=== PATIENT | male | born 1935 | race Caucasian/White ===

== ENCOUNTER → 2017-01-17 | Outpatient (CLI) | payer MEDICARE ==
--- NOTE | 2017-01-17 13:38 | REP ---
Duplex extremity venous ultrasound: Left lower extremity. History: Left leg pain and swelling. Question DVT. Findings: The deep veins are anechoic and fully compressible from the groin to the popliteal fossa in the left lower extremity. Color flow imaging is homogeneous. Spectral Doppler interrogation demonstrates intact respiratory variation in flow and normal manual augmentation of flow. There is no evidence of deep vein thrombosis. Impression: Negative left lower extremity duplex venous ultrasound. No evidence of deep vein thrombosis. Signed by Ian Kent MD 01/17/2017 01:30 P
== END ==
LOC: M RAD 12:43
PROVIDERS: ATTEND Nurse Practitioner Adult Health
DX: M79.605 Pain in left leg (principal)

== ENCOUNTER → 2017-02-22 | Outpatient (REF) | payer MEDICARE ==
[2017-02-22 18:46] LABS: FERRITIN 163 NG/ML (26-388); PERCENT SATURATION 22.5 % (19.7-37.4); TOTAL IRON BINDING CAPACITY 289 UG/DL (250-450); TOTAL PROTEIN 6.7 GM/DL (6.4-8.2)
[2017-02-26 10:33] LABS: ALBUMIN 3.52 GM/DL (3.29-5.55); ALBUMIN % 52.6 % (55.8-66.1); GAMMA GLOBULIN % 14.3 % (11.1-18.8)
== END ==
LOC: M LAB REF 17:01
PROVIDERS: ATTEND Nurse Practitioner Adult Health
DX: D50.9 Iron deficiency anemia, unspecified (principal); G60.3 Idiopathic progressive neuropathy

== ENCOUNTER → 2017-04-03 | Outpatient (REF) | payer MEDICARE | LOC: M LAB REF 12:29 | PROVIDERS: ATTEND Nurse Practitioner Adult Health | DX: M86.172 Other acute osteomyelitis, left ankle and foot (principal) ==

== ENCOUNTER → 2017-05-14 | Outpatient (CLI) | payer MEDICARE ==
[2017-05-14 12:25] LABS: BLOOD UREA NITROGEN 10 MG/DL (7-18); CREATININE FOR GFR 0.85 MG/DL (0.70-1.30); GLOMERULAR FILTRATION RATE > 60.0 (>35)
--- NOTE | 2017-05-14 13:55 | REP ---
MR BRAIN WITHOUT AND WITH CONTRAST: HISTORY: Third Nerve Palsy. CONTRAST: ProHance 17 mL. An area of increased signal intensity on T2-weighted images is present in the right basal ganglia and centrum semiovale. This represents an old lacunar infarction. Areas of increased signal intensity on T2-weighted images are present in the periventricular and subcortical white matter and nimco. This represents small vessel ischemic disease. There is no intraparenchymal hemorrhage, acute infarct, mass, or midline shift. There is no abnormal enhancement. The ventricular system and cortical sulci are dilated consistent with mild volume loss. There is no extracerebral collection. The sinuses are clear. IMPRESSION: 1. 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 2. Small vessel ischemic disease. 3. Mild volume loss. Signed by Madan Busch MD 05/14/2017 02:05 P
--- NOTE | 2017-05-14 14:16 | REP ---
MRA BRAIN WITHOUT CONTRAST: HISTORY: Left Third Nerve Palsy. 3D [id number] MR angiography was performed at the level of the [place]. There is on aneurysm or arteriovenous malformation. Mild atherosclerotic disease involves the cavernous and supraclinoid internal carotid arteries. Major intracranial vessels are patent. There is ectasia of the right vertebral artery. The right vertebral artery is dominant. IMPRESSION: 1. There is no aneurysm or arteriovenous malformation. 2. Atherosclerotic disease as described above. Signed by Madan Busch MD 05/14/2017 02:25 P
== END ==
LOC: M LAB 11:18
PROVIDERS: ATTEND Ophthalmology
DX: H49.02 Third [oculomotor] nerve palsy, left eye (principal)
CPT/HCPCS: 36415; 70544; 70553; 82565; 84520; A9576

== ENCOUNTER → 2018-07-22 | Outpatient (REF) | payer MEDICARE | LOC: M LAB REF 14:39 | DX: R19.7 Diarrhea, unspecified (principal) | CPT/HCPCS: 87507 ==

== ENCOUNTER → 2019-02-20 | Outpatient (REF) | payer MEDICARE ==
[2019-02-20 18:52] LABS: AMYLASE 21 U/L (25-115); LIPASE 59 U/L (73-393)
== END ==
LOC: M LAB REF 16:50
PROVIDERS: ATTEND Nurse Practitioner Family
DX: R10.9 Unspecified abdominal pain (principal)

== ENCOUNTER 2019-03-07 09:01 | Inpatient (IN) | payer MEDICARE ==
[~2019-03-07] VITALS: Ht 175.3 cm; Wt 92.6 kg
[2019-03-07] MEDS ORDERED: ZYLO300T6 PO (09:19)
[2019-03-07] MEDS ORDERED: SILO8CAP PO (09:19)
[2019-03-07] MEDS ORDERED: ATOR1TAB19 PO (09:19)
[2019-03-07] MEDS ORDERED: LOSA50TA5 PO (09:19)
[2019-03-07] MEDS ORDERED: FINA5TAB2 PO (09:19)
[2019-03-07 09:58] LABS: BASO % 0.3 % (0.0-1.0); EOS % 0.1 % (0.0-3.0); HEMATOCRIT 40.1 % (42.0-52.0); HEMOGLOBIN 13.3 g/dl (13.5-17.5); LYMPH # 0.8 10^3/uL (1.5-4.5); LYMPH % 5.1 % (24.0-44.0); MEAN CORPUSCULAR HEMOGLOBIN 32.8 pg (27.0-33.0); MEAN CORPUSCULAR HGB CONC 33.2 g/dl (32.0-36.5); MEAN CORPUSCULAR VOLUME 98.8 fl (80.0-96.0); MONO # 0.6 10^3/uL (0.0-0.8); MONO % 3.8 % (0.0-5.0); NEUTROPHILS # 13.9 10^3/uL (1.8-7.7); PLATELET COUNT, AUTOMATED 255 10^3/uL (150-450); RED BLOOD COUNT 4.06 10^6/uL (4.30-6.10); WHITE BLOOD COUNT 15.4 10^3/uL (4.0-10.0)
[2019-03-07 10:24] LABS: ALBUMIN 2.9 GM/DL (3.2-5.2); ALT/SGPT 25 U/L (12-78); BILIRUBIN,DIRECT 0.3 MG/DL (0.0-0.2); BILIRUBIN,TOTAL 1.1 MG/DL (0.2-1.0); BLOOD UREA NITROGEN 21 MG/DL (7-18); CALCIUM LEVEL 9.3 MG/DL (8.8-10.2); CARBON DIOXIDE LEVEL 28 MEQ/L (21-32); CHLORIDE LEVEL 104 MEQ/L (98-107); CREATININE FOR GFR 1.01 MG/DL (0.70-1.30); GLOMERULAR FILTRATION RATE > 60.0 (>35); GLUCOSE, FASTING 143 MG/DL (70-100); LIPASE 61 U/L (73-393); POTASSIUM SERUM 3.8 MEQ/L (3.5-5.1); SODIUM LEVEL 141 MEQ/L (136-145); TOTAL PROTEIN 7.1 GM/DL (6.4-8.2)
[2019-03-07] MEDS: GASTROGRAFIN SOLUTION 30ML PO SCH ×2 (10:37→11:02)
[2019-03-07] MEDS: ONDANSETRON 4MG/2ML VIAL (J2405) IV ONE ×2 (10:38→11:48)
[2019-03-07] MEDS ORDERED: ISOVUE-370 76% 100ML VIAL (Q9967) As Ordered ONE (11:52)
--- NOTE | 2019-03-07 13:34 | REP ---
CT ABDOMEN AND PELVIS WITH ORAL AND IV CONTRAST: TECHNIQUE: Axial contrast enhanced images from the lung bases to the pubic symphysis using 100 mL Isovue 370 intravenous contrast material with multiplanar reformations. Visualized lung bases demonstrate patchy infiltrates or atelectasis inferiorly bilaterally. Multiple calcified granulomas are seen in the liver. No parenchymal mass is seen. The patient has had prior cholecystectomy. There is expected prominence of the common bile duct and central intrahepatic ducts. Multiple calcified granulomas are seen in the spleen, which is normal in size. The adrenals are normal. There is a suspicious mass in the tail of the pancreas, which appears partially cystic and solid. It measures approximately 3.9 x 3.0 cm. A few small cysts are seen in each kidney. There is no hydronephrosis bilaterally. Moderate atherosclerotic calcification is seen of the abdominal aorta with minimal aneurysmal dilatation 3.1 cm in maximum AP dimension. Multiple subcentimeter lymph nodes are seen in the periaortic region. Ill-defined soft tissue is seen in the omentum compatible with neoplastic metastatic disease. Ill-defined infiltration is seen of the more inferior omentum and mesentery to a mild extent. There is a focal area of moderate mesenteric stranding and likely neoplastic infiltration in the upper pelvis just to the right of midline. A small bowel loops appears to be involved and appears to be partially obstructed with moderate proximal small bowel dilatation. No definite colonic thickening is seen. There is sigmoid diverticulosis. There is mild scattered free fluid throughout the abdomen and pelvis. There is no free air. Urinary bladder is not well-distended and not well evaluated. There is a small right inguinal hernia containing mild fluid. No bony lesions are seen. IMPRESSION: Patchy bibasilar infiltrates/atelectasis in the visualized lung bases. Suspicious mass in the tail of the pancreas 3.9 x 3.0 cm. Abnormal soft tissue, which is ill-defined, diffusely in the superior omentum compatible with neoplastic infiltration and metastatic disease. There is also scattered infiltration of the mesentery, which is more focal in the upper pelvis to the right of midline. This affects a small bowel loop at that location and appears to cause small bowel obstruction. The more proximal small bowel demonstrates moderate diffuse dilatation. There is mild diffuse abdominal and pelvic ascites. Electronically Signed by Feroz Patel MD 03/11/2019 05:32 P
[2019-03-07] MEDS ORDERED: NS 500 ML IV ONE (14:45)
[2019-03-07] MEDS ORDERED: NS 1,000 ML IV SCH (14:45)
[2019-03-07] MEDS ORDERED: PRIL20TA2 PO (15:41)
[2019-03-07] MEDS ORDERED: AGGR1CAP PO (15:41)
[2019-03-07] MEDS ORDERED: CITRTAB15 PO (15:44)
[2019-03-07] MEDS ORDERED: FISH1000 PO (15:44)
[2019-03-07] MEDS ORDERED: MULTCAP PO (15:44)
[2019-03-07] MEDS ORDERED: VITA-172 PO (15:44)
[2019-03-07] MEDS: D5W/0.45% SODIUM CHLORIDE 1,000 ML IV SCH (15:57)
[2019-03-07 17:22] VITALS: BP 111/55
--- NOTE | 2019-03-07 17:28 | HPEPDOC ---
General Date of Admission Mar 07, 2019 at 15:04 Chief Complaint The patient is a 83-year-old male admitted with a reason for visit of Bowel Obs truction, Pancreatic Mass. Home Medications Scheduled Allopurinol (Zyloprim) 300 Mg Tablet, 300 MG PO DAILY, (Reported) Aspirin/Dipyridamole (Aggrenox 25 mg-200 mg Capsule) 1 Each Cpmp.12hr, 1 CAP PO BID, (Reported) Atorvastatin Calcium (Atorvastatin Calcium) 10 Mg Tablet, 10 MG PO QPM, (Reported) Brennen Cit/Mag/D3/Zn/Account Resolution Expert/Carlos/Bor (Citracal-Vit D + Magnesium Tab) 1 Each Tablet, 1 TAB PO DAILY, (Reported) Cyanocobalamin (Vitamin B-12) (Vitamin B-12) 500 Mcg Tablet, 500 MCG PO DAILY, (Reported) Finasteride (Finasteride) 5 Mg Tablet, 5 MG PO QPM, (Reported) Losartan/Hydrochlorothiazide (Losartan-Hctz 50-12.5 mg Tab) 1 Each Tablet, 1 TAB PO DAILY, (Reported) Multivitamin (Multivitamins) 1 Each Capsule, 1 CAP PO DAILY, (Reported) [place]-3 Fatty Acids/Fish Oil (Fish Oil 1,000 mg Capsule) 1 Each Capsule, 1,000 MG PO DAILY, (Reported) Omeprazole Magnesium (Prilosec Otc) 20 Mg Tablet.dr, 20 MG PO DAILY, (Reported) Silodosin (Silodosin) 8 Mg Capsule, 8 MG PO QPM, (Reported) Allergies Coded Allergies: No Known Allergies (Verified , 02/16/03) Vital Signs Vital Signs Date Time Temp Pulse Resp B/P (MAP) Pulse Ox O2 Delivery O2 Flow Rate FiO2 03/07/19 17:22 97.8 92 18 111/55 (73) 91 03/07/19 14:15 Room Air Laboratory Data Labs 24H Laboratory Tests 2 03/07/19 09:47: Immature Granulocyte % (Auto) 0.7, White Blood Count 15.4H, Red Blood Count 4.06L, Hemoglobin 13.3L, Hematocrit 40.1L, Mean Corpuscular Volume 98.8H, Mean Corpuscular Hemoglobin 32.8, Mean Corpuscular Hemoglobin Concent 33.2, Red Cell Distribution Width 13.0, Platelet Count 255, Neutrophils (%) (Auto) 90.0H, Lymphocytes (%) (Auto) 5.1L, Monocytes (%) (Auto) 3.8, Eosinophils (%) (Auto) 0.1, Basophils (%) (Auto) 0.3, Neutrophils # (Auto) 13.9H, Lymphocytes # (Auto) 0.8L, Monocytes # (Auto) 0.6, Eosinophils # (Auto) 0.0, Basophils # (Auto) 0.0, Nucleated Red Blood Cells % (auto) 0.0, Anion Gap 9, Glomerular Filtration Rate > 60.0, Calcium Level 9.3, Aspartate Amino Transf (AST/SGOT) 25, Alanine Am inotransferase (ALT/SGPT) 25, Alkaline Phosphatase 157H, Total Bilirubin 1.1H, Direct Bilirubin 0.3H, Total Protein 7.1, Albumin 2.9L, Albumin/Globulin Ratio 0.69L, Lipase 61L 03/07/19 11:49: Urine Color BRIAN, Urine Appearance CLOUDYH, Urine pH 6.0, Urine Specific [place] 1.021, Urine Protein NEGATIVE, Urine Glucose (UA) NEGATIVE, Urine Ketones NEGATIVE, Urine Blood NEGATIVE, Urine Nitrite NEGATIVE, Urine Bilirubin NEGATIVE, Urine Urobilinogen 2.0H, Urine Leukocyte Esterase NEGATIVE, Urine WBC (Auto) 1, Urine RBC (Auto) 2, Urine Hyaline Casts (Auto) 1, Urine Bacteria (Aut o) NEGATIVE, Urine Squamous Epithelial Cells 0, Urine Amorphous Sediment SMALLH, Urine Mucus (Auto) SMALL, Urine Sperm (Auto) 03/07/19 14:20: POC Lactate (Misc Panel) 2.48*H CBC/BMP Laboratory Tests 03/07/19 09:47 Red Blood Count 4.06 L, Mean Corpuscular Volume 98.8 H, Mean Corpuscular Hemoglobin 32.8, Mean Corpuscular Hemoglobin Concent 33.2, Red Cell Distribution Width 13.0, Neutrophils (%) (Auto) 90.0 H, Lymphocytes (%) (Auto) 5.1 L, Monocytes (%) (Auto) 3.8, Eosinophils (%) (Auto) 0.1, Basophils (%) (Auto) 0.3, Neutrophils # (Auto) 13.9 H, Lymphocytes # (Auto) 0.8 L, Monocytes # (Auto) 0.6, Eosinophils # (Auto) 0.0, Basophils # (Auto) 0.0 TOMASA PETER MD Mar 07, 2019 17:28
[2019-03-07] MEDS: ENOXAPARIN 40 MG/0.4 ML SYRINGE (J1650) SC SCH (17:30)
--- NOTE | 2019-03-07 18:04 | MEDONC ---
NEW PATIENT CONSULTATION: DATE OF SERVICE: 03/07/2019 REASON FOR CONSULTATION: Pancreatic mass. This is a very pleasant 83-year-old gentleman who had presented to the emergency room this morning due to a chief complaint of abdominal distension, persistent nausea, vomiting and abdominal pain. This had been going on for at least 24-48 hours. When the patient arrived to the emergency room he was markedly distended and an NG tube was placed for drainage. The patient's abdomen was not acute on palpation. However, he had gone for imaging studies of the abdomen to rule out acute abdominal obstruction. The CT scan of the abdomen had shown multiple calcified granulomas in the liver, prior cholecystectomy, prominence of the common bile duct and multiple calcified granulomas in the spleen which were normal in size. There was a suspicious mass in the tail of the pancreas which appeared to be partially cystic and solid measuring 3 x 9 x 3 cm. There was no evidence of any hydronephrosis. There is an abdominal aortic aneurysm measuring 3.1 cm in maximum dimension. There were also multiple subcentimeter lymph nodes seen in the periaortic region and an ill-defined soft tissue in the omentum compatible with neoplastic metastatic disease. There was ill-defined infiltration seen in the more inferior omentum and mesentery to mild extent. There was a focal area of moderate mesenteric stranding and likely neoplastic infiltration in the upper pelvis just right to the midline and the small bowel loops appear to be involved and appear to be partially obstructed with moderate proximal small bowel dilatation. There was no evidence of any colonic thickening or free air. There is mild diffuse abdominal and pelvic ascites. The patient currently is comfortable in the ICU. He is surrounded by his family and states that he feels better now that he has the NG tube in. PAST MEDICAL HISTORY: The patient's past medical history includes benign prostatic hypertrophy (BPH), hypertension, hyperlipidemia. The patient's left lower leg is in a permanent cast secondary to nonhealing of his lower leg, possible osteomyelitis. The patient has a history of hypertension, gout. Colonoscopy in 2012 where the patient had shown some nonbleeding internal hemorrhoids, diverticulosis, one medium polyp in the mid transverse colon, which was biopsied and was consistent with a tubular adenoma. MEDICATIONS: Include: - allopurinol 300 mg p.o. daily - aspirin - dipyridamole 1 capsule p.o. b.i.d. - atorvastatin calcium 10 mg p.o. q.p.m. - cyanocobalamin - vitamin B12 500 mg p.o. daily - finasteride 5 mg p.o. q.p.m. - losartan - hydrochlorothiazide 50/12.5 mg one p.o. daily - MVI 1 capsule p.o. daily - omega fish oils 1000 mg p.o. daily - omeprazole 20 mg p.o. daily - Silodosin 8 mg p.o. q.p.m. SOCIAL HISTORY The patient is retired from the [employer]. He lives with his . His children are supportive. FAMILY HISTORY: Otherwise noncontributory. REVIEW OF SYSTEMS As noted in HPI. PHYSICAL EXAMINATION: VITAL SIGNS: The patient has a temperature of 98.3, pulse of 95, respiratory rate is 20, BP is 111/57, pulse oximetry is 93, height is 175, weight is 181.9, BSA is 2.01, BMI is 26.7. HEENT: Normocephalic, atraumatic. PERRL. EOMI. Sclerae is white, it is nonicteric. Oropharynx clear. NG tube is present in the nares. Neck: Supple. Chest: Decreased breath sounds at the bases. Cardiovascular: S1 and S2 appreciated with no murmurs. Abdomen: Large, globoid, but distended, very tympanic throughout the abdominal area. Bowel sounds are absent. There is no sign of any ascites. Extremities: His left lower extremity is currently casted in his polyurethane boot and there is no edema on the right. LABORATORIES: Shows a WBC count of 15.4, hemoglobin of 13.3, hematocrit of 40.1, RDW of 13, platelets of 255, neutrophils of 90, lymphocytes are 5.1. Chemistries show a lipase of 61, albumin of 2.9, alkaline phosphatase of 157, AST 25, ALT of 25, BUN 21, creatinine 1.01, sodium of 141, potassium 3.8. ASSESSMENT: Pancreatic tail mass with current mesentery thickening suggestive of small bowel obstruction secondary to malignancy. PLAN: Plan is to get a biopsy of the mass. The patient has had a history of a prior tubulous bilious adenoma. The pancreatic mass could be a metastatic site or a primary site. I advised the family that it is unlikely that we will have a diagnosis this weekend and that we will see the availability of interventional radiology. His NG tube will need to remain for several days likely and then further discussions about treatment etc will be made after tissue diagnosis is confirmed. Electronically Signed by Essence Loredo MD 03/10/2019 12:32 P DD: Essence Loredo MD 03/07/2019 04:54 P DT: kathy 03/07/2019 05:50 P CC:
[2019-03-07 20:00] VITALS: BP 90/40
--- NOTE | 2019-03-07 20:58 | HPEPDOC ---
[facility] Medical History & Physical Date of Admission Mar 07, 2019 Date of Service: Mar 07, 2019 Attending Physician: TOMASA PETER MD History and Physical CHIEF COMPLAINT: Abdominal pain HISTORY OF PRESENT ILLNESS: Mr. Selby is an 83 year old male resented with complaints of diffuse, nonradiating, eating, 9 out of 10 in severity, abdominal pain. Associated symptoms included constipation (his last BM was on Sunday), along with nausea, vomiting and abdominal distention. He denied obstipation. He has lost weight but denies fevers and chills. PAST MEDICAL/ SURGICAL HISTORY: 1. Chronic hypertension. 2. Right lower extremity surgery. 3 BPH. 4 Dyslipidemia SOCIAL HISTORY: Quit smoking in the 60s. Takes alcohol occasionally. FAMILY HISTORY: Denies family history of heart problems or lung problems. ALLERGIES: Please see below. REVIEW OF SYSTEMS: 12 point review of systems negative except as listed in HPI HOME MEDICATIONS: Please see below. PHYSICAL EXAMINATION: Temperature 97.8, heart rate 92, respiratory rate 18, blood pressure 111/55, pulse oximetry 93% on room air GENERAL APPEARANCE:. Well-nourished, well-developed, has flat affect. HEENT:. Normocephalic, atraumatic. Mucous members moist and pink. NG tube in place to low wall suction. Stomach contents or bilious CARDIOVASCULAR: Rate and rhythm. No murmurs, rubs or gallops. LUNGS:. Sensation on room air. ABDOMEN: Abdominal sounds are hypoactive. The abdomen is slightly distended, firm but not tender on palpation. MUSCULOSKELETAL: Range of motion intact 4 extremities. EXTREMITIES:, 2+ bilateral lower extremity edema. NEUROLOGICAL: CN II to 12 grossly intact. Speech not dysarthric PSYCHIATRIC:. Alert and oriented to person, place and time, able to understand and follow all commands. Patient has a flat affect. LABORATORY DATA: See below. IMAGING: CT of the abdomen showed a mass in the tail of the pancreas that was 3.9 x 3 cm. There was metastatic disease noted to affect the mesentery and the small bowels causing obstruction. MICROBIOLOGY: Please see below. ASSESSMENT: Mr. Selby is an 83-year-old gentleman with a past medical history of BPH, hypertension and dyslipidemia will be admitted for management of small bow el obstruction secondary to metastatic pancreatic cancer. . PLAN: 1., Small bowel obstruction secondary to Metastatic pancreatic cancer. Plan: Admit to medical floor, continue nothing by mouth and NG to suction, continue with IV fluids and Zofran, consult oncology and palliative care, morphine when necessary for pain control. 2. Chronic hypertension. Plan: Monitor blood pressure, and hold meds well. Nothing by mouth, hydralazine PRN 3. BPH. Plan hold meds DVT prophylaxis with Lovenox. Disposition pending clinical course Vital Signs Vital Signs Date Time Temp Pulse Resp B/P (MAP) Pulse Ox O2 Delivery O2 Flow Rate FiO2 03/07/19 17:22 97.8 92 18 111/55 (73) 91 03/07/19 14:15 Room Air Laboratory Data Labs 24H Laboratory Tests 2 03/07/19 09:47: Immature Granulocyte % (Auto) 0.7, White Blood Count 15.4H, Red Blood Count 4.06L, Hemoglobin 13.3L, Hematocrit 40.1L, Mean Corpuscular Volume 98.8H, Mean Corpuscular Hemoglobin 32.8, Mean Corpuscular Hemoglobin Concent 33.2, Red Cell Distribution Width 13.0, Platelet Count 255, Neutrophils (%) (Auto) 90.0H, Lymphocytes (%) (Auto) 5.1L, Monocytes (%) (Auto) 3.8, Eosinophils (%) (Auto) 0.1, Basophils (%) (Auto) 0.3, Neutrophils # (Auto) 13.9H, Lymphocytes # (Auto) 0.8L, Monocytes # (Auto) 0.6, Eosinophils # (Auto) 0.0, Basophils # (Auto) 0.0, Nucleated Red Blood Cells % (auto) 0.0, Anion Gap 9, Glomerular Filtration Rate > 60.0, Calcium Level 9.3, Aspartate Amino Transf (AST/SGOT) 25, Alanine Aminotransferase (ALT/SGPT) 25, Alkaline Phosphatase 157H, Total Bilirubin 1.1H, Direct Bilirubin 0.3H, Total Protein 7.1, Albumin 2.9L, Albumin/Globulin Ratio 0.69L, Lipase 61L 03/07/19 11:49: Urine Color BRIAN, Urine Appearance CLOUDYH, Urine pH 6.0, Urine Specific [place] 1.021, Urine Protein NEGATIVE, Urine Glucose (UA) NEGATIVE, Urine Ketones NEGATIVE, Urine Blood NEGATIVE, Urine Nitrite NEGATIVE, Urine Bilirubin NEGATIVE, Urine Urobilinogen 2.0H, Urine Leukocyte Esterase NEGATIVE, Urine WBC (Auto) 1, Urine RBC (Auto) 2, Urine Hyaline Casts (Auto) 1, Urine Bacteria (Auto) NEGATIVE, Urine Squamous Epithelial Cells 0, Urine Amorphous Sediment SMALLH, Urine Mucus (Auto) SMALL, Urine Sperm (Auto) 03/07/19 14:20: POC Lactate (Misc Panel) 2.48*H 03/07/19 18:33: Lactic Acid Level 1.7 CBC/BMP Laboratory Tests 03/07/19 09:47 Red Blood Count 4.06 L, Mean Corpuscular Volume 98.8 H, Mean Corpuscular Hemoglobin 32.8, Mean Corpuscular Hemoglobin Concent 33.2, Red Cell Distribution Width 13.0, Neutrophils (%) (Auto) 90.0 H, Lymphocytes (%) (Auto) 5.1 L, Monocytes (%) (Auto) 3.8, Eosinophils (%) (Auto) 0.1, Basophils (%) (Auto) 0.3, Neutrophils # (Auto) 13.9 H, Lymphocytes # (Auto) 0.8 L, Monocytes # (Auto) 0.6, Eosinophils # (Auto) 0.0, Basophils # (Auto) 0.0 Home Medications Scheduled Allopurinol (Zyloprim) 300 Mg Tablet, 300 MG PO DAILY Aspirin/Dipyridamole (Aggrenox 25 mg-200 mg Capsule) 1 Each Cpmp.12hr, 1 CAP PO BID Atorvastatin Calcium (Atorvastatin Calcium) 10 Mg Tablet, 10 MG PO QPM Brennen Cit/Mag/D3/Zn/Vacuum Frame Operator/Carlos/Bor (Citracal-Vit D + Magnesium Tab) 1 Each Tablet, 1 TAB PO DAILY Cyanocobalamin (Vitamin B-12) (Vitamin B-12) 500 Mcg Tablet, 500 MCG PO DAILY Finasteride (Finasteride) 5 Mg Tablet, 5 MG PO QPM Losartan/Hydrochlorothiazide (Losartan-Hctz 50-12.5 mg Tab) 1 Each Tablet, 1 TAB PO DAILY Multivitamin (Multivitamins) 1 Each Capsule, 1 CAP PO DAILY [place]-3 Fatty Acids/Fish Oil (Fish Oil 1,000 mg Capsule) 1 Each Capsule, 1,000 MG PO DAILY Omeprazole Magnesium (Prilosec Otc) 20 Mg Tablet.dr, 20 MG PO DAILY Silodosin (Silodosin) 8 Mg Capsule, 8 MG PO QPM Allergies Coded Allergies: No Known Allergies (Verified , 02/16/03) A-FIB/CHADSVASC A-FIB History Current/History of A-Fib/PAF?: No Current PO Anticoag Therapy: No TOMASA PETER MD Mar 07, 2019 20:58
[2019-03-07] MEDS: hydrALAZINE INJ 20 MG/ML VIAL IV SCH (21:00)
[2019-03-08] VITALS (7 sets, daily range): BP systolic 101–132; BP diastolic 55–67
[2019-03-08] MEDS: hydrALAZINE INJ 20 MG/ML VIAL IV SCH ×3 (05:05→19:56)
[2019-03-08 06:01] LABS: ALBUMIN 2.6 GM/DL (3.2-5.2); ALT/SGPT 18 U/L (12-78); BILIRUBIN,TOTAL 0.9 MG/DL (0.2-1.0); BLOOD UREA NITROGEN 30 MG/DL (7-18); CARBON DIOXIDE LEVEL 33 MEQ/L (21-32); CHLORIDE LEVEL 102 MEQ/L (98-107); CREATININE FOR GFR 1.01 MG/DL (0.70-1.30); GLOMERULAR FILTRATION RATE > 60.0 (>35); GLUCOSE, FASTING 127 MG/DL (70-100); POTASSIUM SERUM 3.4 MEQ/L (3.5-5.1); SODIUM LEVEL 142 MEQ/L (136-145); TOTAL PROTEIN 6.8 GM/DL (6.4-8.2)
[2019-03-08 08:37] LABS: BASO % 0.1 % (0.0-1.0); EOS % 0.2 % (0.0-3.0); HEMATOCRIT 32.4 % (42.0-52.0); LYMPH # 1.4 10^3/uL (1.5-4.5); MEAN CORPUSCULAR HEMOGLOBIN 32.8 pg (27.0-33.0); MEAN CORPUSCULAR VOLUME 96.7 fl (80.0-96.0); MONO % 5.7 % (0.0-5.0); NEUTROPHILS # 14.6 10^3/uL (1.8-7.7); NEUTROPHILS % 85.3 % (36.0-66.0); PLATELET COUNT, AUTOMATED 247 10^3/uL (150-450); RED BLOOD COUNT 3.35 10^6/uL (4.30-6.10); WHITE BLOOD COUNT 17.2 10^3/uL (4.0-10.0)
[2019-03-08 09:12] LABS: BLOOD UREA NITROGEN 30 MG/DL (7-18); CALCIUM LEVEL 8.6 MG/DL (8.8-10.2); CARBON DIOXIDE LEVEL 33 MEQ/L (21-32); CHLORIDE LEVEL 103 MEQ/L (98-107); CREATININE FOR GFR 0.93 MG/DL (0.70-1.30); GLOMERULAR FILTRATION RATE > 60.0 (>35); GLUCOSE, FASTING 125 MG/DL (70-100); POTASSIUM SERUM 3.3 MEQ/L (3.5-5.1); SODIUM LEVEL 142 MEQ/L (136-145)
[2019-03-08] MEDS: D5W/0.45% SODIUM CHLORIDE 1,000 ML IV SCH (10:30)
[2019-03-08] MEDS: ENOXAPARIN 40 MG/0.4 ML SYRINGE (J1650) SC SCH (10:30)
[2019-03-08] MEDS: KCL 10MEQ/100ML SWI (KRUN) 10 MEQ in APPROPRIATE DILUENT 1 EA IV SCH ×2 (14:43→17:00)
--- NOTE | 2019-03-08 16:04 | IPNPDOC ---
Subjective Date Seen The patient was seen on 03/08/19. Time of service 9:50 AM Subjective Chief Complaint/HPI Abdominal pain Events since last encounter The patient denies having any abdominal pain, or any other acute complaints this morning. Per discussion with his RN the patient continues to have large amount of bilious output through the NG Objective Physical Examination Other physical findings PHYSICAL EXAMINATION: GENERAL APPEARANCE:. Well-nourished, well-developed, has flat affect. HEENT:. Normocephalic, atraumatic. Mucous members moist and pink. NG tube in p lace to low wall suction. Stomach contents or bilious CARDIOVASCULAR: Rate and rhythm. No murmurs, rubs or gallops. LUNGS:. Sensation on room air. ABDOMEN: Abdominal sounds are hypoactive the abdomen is less distended than yesterday and not tender on palpation MUSCULOSKELETAL: Range of motion intact 4 extremities. EXTREMITIES:, 2+ bilateral lower extremity edema. NEUROLOGICAL: CN II to 12 grossly intact. Speech not dysarthric PSYCHIATRIC:. Alert and oriented to person, place and time, able to understand and follow all commands. Patient has a flat affect. Assessment /Plan Assessment Mr. Selby is an 83-year-old gentleman with a past medical history of BPH, hype rtension and dyslipidemia will be admitted for management of small bowel obstruction secondary to metastatic pancreatic cancer. PLAN: 1, Small bowel obstruction secondary to Metastatic cancer. Per Dr. Loredo's consult it's unclear whether the pancreas as the primary or sediment. Past desists Plan appreciate oncology and surgery's recommendations, continue the NG to suction, IV fluids, Zofran and morphine 2. Chronic hypertension. Plan: Monitor blood pressure, and hold meds well. Nothing by mouth, hydralazine PRN 3. BPH. Plan: hold meds 4. Hypokalemia. Likely secondary to GI loss Plan repeat potassium. 5. Obesity. BMI 30.3 DVT prophylaxis with Lovenox. Disposition pending clinical course Plan/VTE VTE Prophylaxis Ordered?: Yes (lovenox) VS, I&O, 24H, Fishbone Vital Signs/I&O Vital Signs Date Time Temp Pulse Resp B/P (MAP) Pulse Ox O2 Delivery O2 Flow Rate FiO2 03/08/19 13:00 117/59 03/08/19 12:00 97.0 74 18 96 03/07/19 14:15 Room Air I&O- Last 24 Hours up to 6 AM 03/08/19 06:00 Intake Total 500 ml Output Total 675 ml Balance -175 ml Laboratory Data 24H LABS Laboratory Tests 2 03/07/19 18:33: Lactic Acid Level 1.7 03/08/19 04:59: Anion Gap 7L, Glomerular Filtration Rate > 60.0, Blood Urea Nitrogen 30H, Creatinine 1.01, Sodium Level 142, Potassium Level 3.4L, Chloride Level 102, Carbon Dioxide Level 33H, Calcium Level 9.0, Aspartate Amino Transf (AST/SGOT) 16, Alanine Aminotransferase (ALT/SGPT) 18, Alkaline Phosphatase 124H, Total Bilirubin 0.9, Total Protein 6.8, Albumin 2.6L, Albumin/Globulin Ratio 0.62L 03/08/19 07:47: Lactic Acid Level 1.8 03/08/19 08:27: Anion Gap 6L, Glomerular Filtration Rate > 60.0, Blood Urea Nitrogen 30H, Creatinine 0.93, Sodium Level 142, Potassium Level 3.3L, Chloride Level 103, Carbon Dioxide Level 33H, Calcium Level 8.6L, Immature Granulocyte % (Auto) 0.7, White Blood Count 17.2H, Red Blood Count 3.35L, Hemoglobin 11.0#L, Hematocrit 32.4L, Mean Corpuscular Volume 96.7H, Mean Corpuscular Hemoglobin 32.8, Mean Corpuscular Hemoglobin Concent 34.0, Red Cell Distribution Width 12.9, Platelet Count 247, Neutrophils (%) (Auto) 85.3H, Lymphocytes (%) (Auto) 8.0L, Monocytes (%) (Auto) 5.7H, Eosinophils (%) (Auto) 0.2, Basophils (%) (Auto) 0.1, Neutrophils # (Auto) 14.6H, Lymphocytes # (Auto) 1.4L, Monocytes # (Auto) 1.0H, Eosinophils # (Auto) 0.0, Basophils # (Auto) 0.0, Nucleated Red Blood Cells % (auto) 0.0 CBC/BMP Laboratory Tests 03/08/19 04:59 Calcium Level 9.0, Aspartate Amino Transf (AST/SGOT) 16, Alanine Aminotransferase (ALT/SGPT) 18, Alkaline Phosphatase 124 H, Total Bilirubin 0.9, Total Protein 6.8, Albumin 2.6 L 03/08/19 08:27 Calcium Level 8.6 L, Red Blood Count 3.35 L, Mean Corpuscular Volume 96.7 H, Mean Corpuscular Hemoglobin 32.8, Mean Corpuscular Hemoglobin Concent 34.0, Red Cell Distribution Width 12.9, Neutrophils (%) (Auto) 85.3 H, Lymphocytes (%) (Auto) 8.0 L, Monocytes (%) (Auto) 5.7 H, Eosinophils (%) (Auto) 0.2, Basophils (%) (Auto) 0.1, Neutrophils # (Auto) 14.6 H, Lymphocytes # (Auto) 1.4 L, Monocytes # (Auto) 1.0 H, Eosinophils # (Auto) 0.0, Basophils # (Auto) 0.0 TOMASA PETER MD Mar 08, 2019 16:04
[2019-03-08] MEDS: FINASTERIDE 5 MG TAB PO SCH (20:06)
[2019-03-09] VITALS: BP 138/64
[2019-03-09 04:00] VITALS: BP 131/64
[2019-03-09] MEDS: hydrALAZINE INJ 20 MG/ML VIAL IV SCH ×3 (04:38→21:00)
[2019-03-09 08:00] VITALS: BP 140/73
[2019-03-09] MEDS: D5W/0.45% SODIUM CHLORIDE 1,000 ML IV SCH (09:28)
[2019-03-09] MEDS: ENOXAPARIN 40 MG/0.4 ML SYRINGE (J1650) SC SCH (09:31)
--- NOTE | 2019-03-09 09:57 | IPNPDOC ---
Subjective Date Seen The patient was seen on 03/09/19. Time of service 8:20 AM Subjective Chief Complaint/HPI Abdominal pain. Events since last encounter The patient reports feeling much better today, he denies having abdominal pain or any acute complaints. His [id number] is at the bedside. Per discussion with nursing staff. The patient is passing gas and had a bowel movement, the output through the NG has decreased this morning but during the mini shifter he had an output of about 900 milliliters. Objective Physical Examination Other physical findings PHYSICAL EXAMINATION: VITALS: See below GENERAL APPEARANCE: Well-nourished, well-developed, appears to be in a better mood today HEENT: Normocephalic, atraumatic. Mucous members moist and pink. NG tube in p lace to low wall suction. Stomach contents or bilious CARDIOVASCULAR: Rate and rhythm. No murmurs, rubs or gallops. LUNGS: Sensation on room air. ABDOMEN: Bowel sounds are present, but more prominent on the left than on the right, the abdomen is no longer distended and is soft and nontender on palpation MUSCULOSKELETAL: Range of motion intact 4 extremities. He has an ankle brace on the lower extremity EXTREMITIES:, 2+ bilateral lower extremity edema. NEUROLOGICAL: CN II to 12 grossly intact. Speech not dysarthric PSYCHIATRIC: Alert and oriented to person, place and time, able to understand and follow all commands. Assessment /Plan Assessment Mr. Selby is an 83-year-old gentleman with a past medical history of BPH, hypertension and dyslipidemia will be admitted for management of small bowel obstruction secondary to metastatic cancer (primary source to be determined). PLAN: 1, Small bowel obstruction secondary to Metastatic cancer. Primary source to be determined Plan: appreciate oncology and surgery's recommendations, continue NG to suction , IV fluids, Zofran and morphine, IR consult for biopsy, possibly tomorrow 2. Macrocytic anemia. Hemoglobin has dropped more than 2 points overnight. Plan: Follow up CBC, reticulocyte count, iron studies, B12, folate and stool occult 3 Chronic hypertension. Plan: Monitor blood pressure, and hold meds well. Nothing by mouth, IV hydralazine PRN 4 BPH. Plan: hold oral meds 5. Hypokalemia. 2/2 GI loss and poor PO intake Plan: Replete K & Continue to monitor potassium and magnesium 6. Obesity. BMI 30.3 DVT prophylaxis with Lovenox. Disposition pending clinical course Plan/VTE VTE Prophylaxis Ordered?: Yes (lovenox) VS, I&O, 24H, Fishbone Vital Signs/I&O Vital Signs Date Time Temp Pulse Resp B/P (MAP) Pulse Ox O2 Delivery O2 Flow Rate FiO2 03/09/19 08:00 98.3 76 17 140/73 (95) 94 03/07/19 14:15 Room Air I&O- Last 24 Hours up to 6 AM 03/09/19 06:00 Intake Total 550 ml Output Total 1300 ml Balance -750 ml Laboratory Data 24H LABS Laboratory Tests 2 03/08/19 17:10: TOMASA PETER MD Mar 09, 2019 09:57
--- NOTE | 2019-03-09 09:59 | IPNPDOC ---
Text Note Date of Service The patient was seen on 03/09/19. NOTE No acute events overnight. He denies any nausea, emesis, fevers, abd pains, or distention. He is passing flatus, and had a BM overnight. Nurses report no NGT output over the mine shifter. VSSAF NAD abd - soft, slightly distended, NT labs - see below A) 83y/o male with partial SBO secondary to likely metastatic pancreatic CA that appears to be resolving P) clamp NGT clq diet ambulate dc NG after dinner is still tolerating it clamped. Lowell Crum DO VS,Fishbone, I+O VS, Fishbone, I+O Vital Signs Date Time Temp Pulse Resp B/P (MAP) Pulse Ox O2 Delivery O2 Flow Rate FiO2 03/09/19 08:00 98.3 76 17 140/73 (95) 94 03/07/19 14:15 Room Air I&O- Last 24 Hours up to 6 AM 03/09/19 06:00 Intake Total 550 ml Output Total 1300 ml Balance -750 ml ART CRUM DO Mar 09, 2019 09:59
[2019-03-09 10:23] LABS: BASO % 0.1 % (0.0-1.0); EOS # 0.1 10^3/uL (0.0-0.50); EOS % 0.6 % (0.0-3.0); HEMATOCRIT 35.1 % (42.0-52.0); HEMOGLOBIN 11.7 g/dl (13.5-17.5); LYMPH # 0.9 10^3/uL (1.5-4.5); LYMPH % 6.6 % (24.0-44.0); MEAN CORPUSCULAR HEMOGLOBIN 32.6 pg (27.0-33.0); MEAN CORPUSCULAR HGB CONC 33.3 g/dl (32.0-36.5); MEAN CORPUSCULAR VOLUME 97.8 fl (80.0-96.0); MONO # 0.7 10^3/uL (0.0-0.8); MONO % 5.3 % (0.0-5.0); NEUTROPHILS # 11.9 10^3/uL (1.8-7.7); NEUTROPHILS % 86.7 % (36.0-66.0); PLATELET COUNT, AUTOMATED 263 10^3/uL (150-450); RED BLOOD COUNT 3.59 10^6/uL (4.30-6.10); WHITE BLOOD COUNT 13.7 10^3/uL (4.0-10.0)
[2019-03-09 10:41] LABS: BLOOD UREA NITROGEN 24 MG/DL (7-18); CALCIUM LEVEL 8.4 MG/DL (8.8-10.2); CARBON DIOXIDE LEVEL 31 MEQ/L (21-32); CHLORIDE LEVEL 103 MEQ/L (98-107); CREATININE FOR GFR 0.88 MG/DL (0.70-1.30); GLOMERULAR FILTRATION RATE > 60.0 (>35); GLUCOSE, FASTING 120 MG/DL (70-100); MAGNESIUM LEVEL 2.3 MG/DL (1.8-2.4); POTASSIUM SERUM 3.3 MEQ/L (3.5-5.1); SODIUM LEVEL 140 MEQ/L (136-145)
[2019-03-09 12:00] VITALS: BP 136/64
[2019-03-09] MEDS ORDERED: POTASSIUM PHOSPHATE INJ 15 MMOL in D5W 250 ML IV ONE (13:00)
[2019-03-09 20:00] VITALS: BP 129/67
[2019-03-09] MEDS: FINASTERIDE 5 MG TAB PO SCH (21:43)
[2019-03-10] VITALS (7 sets, daily range): BP systolic 115–137; BP diastolic 56–70
[2019-03-10] MEDS: hydrALAZINE INJ 20 MG/ML VIAL IV SCH ×3 (05:00→21:00)
[2019-03-10 05:58] LABS: BASO % 0.1 % (0.0-1.0); EOS # 0.1 10^3/uL (0.0-0.50); EOS % 0.7 % (0.0-3.0); HEMATOCRIT 34.5 % (42.0-52.0); HEMOGLOBIN 11.4 g/dl (13.5-17.5); LYMPH # 1.1 10^3/uL (1.5-4.5); MEAN CORPUSCULAR HEMOGLOBIN 32.2 pg (27.0-33.0); MEAN CORPUSCULAR VOLUME 97.5 fl (80.0-96.0); MONO # 0.8 10^3/uL (0.0-0.8); MONO % 5.8 % (0.0-5.0); NEUTROPHILS # 11.4 10^3/uL (1.8-7.7); NEUTROPHILS % 84.7 % (36.0-66.0); PLATELET COUNT, AUTOMATED 254 10^3/uL (150-450); RED BLOOD COUNT 3.54 10^6/uL (4.30-6.10); WHITE BLOOD COUNT 13.5 10^3/uL (4.0-10.0)
[2019-03-10 07:14] LABS: BLOOD UREA NITROGEN 18 MG/DL (7-18); CALCIUM LEVEL 8.5 MG/DL (8.8-10.2); CARBON DIOXIDE LEVEL 33 MEQ/L (21-32); CHLORIDE LEVEL 100 MEQ/L (98-107); CREATININE FOR GFR 0.82 MG/DL (0.70-1.30); FERRITIN 157 NG/ML (26-388); GLOMERULAR FILTRATION RATE > 60.0 (>35); GLUCOSE, FASTING 120 MG/DL (70-100); IRON (FE) 27 UG/DL (65-175); MAGNESIUM LEVEL 2.3 MG/DL (1.8-2.4); POTASSIUM SERUM 2.9 MEQ/L (3.5-5.1); SODIUM LEVEL 140 MEQ/L (136-145); TOTAL IRON BINDING CAPACITY 270 UG/DL (250-450)
[2019-03-10] MEDS: D5W/0.45% SODIUM CHLORIDE 1,000 ML IV SCH (07:40)
[2019-03-10] MEDS ORDERED: KCL 20MEQ IN 100ML SWI (KRUN) 20 MEQ in APPROPRIATE DILUENT 1 EA IV SCH ×2 (07:45)
[2019-03-10] MEDS: ENOXAPARIN 40 MG/0.4 ML SYRINGE (J1650) SC SCH (08:10)
[2019-03-10] MEDS ORDERED: SLF 3 ML SYR IV PRN (10:30)
[2019-03-10] MEDS: KCL 10MEQ/100ML SWI (KRUN) 100 ML IV SCH ×4 (10:57→15:34)
--- NOTE | 2019-03-10 11:07 | IPNPDOC ---
Text Note Date of Service The patient was seen on 03/10/19. NOTE No acute events overnight. He denies any nausea, emesis, fevers, abd pains, or distention. He is passing flatus. He did not tolerate the NGT clamped yesterday, and had to be placed back to suction. VSSAF NAD abd - soft, slightly distended, NT labs - see below A) 83y/o male with partial SBO secondary to likely metastatic pancreatic CA P) NGT to [facility] IR for possible bx today ambulate if no improvement by the am, then I will plan for OR tomorrow. Lowell Crum DO VS,Fishbone, I+O VS, Fishbone, I+O Laboratory Tests 03/10/19 05:33 Red Blood Count 3.54 L, Mean Corpuscular Volume 97.5 H, Mean Corpuscular Hemoglobin 32.2, Mean Corpuscular Hemoglobin Concent 33.0, Red Cell Distribution Width 12.7, Neutrophils (%) (Auto) 84.7 H, Lymphocytes (%) (Auto) 8.0 L, Monocytes (%) (Auto) 5.8 H, Eosinophils (%) (Auto) 0.7, Basophils (%) (Auto) 0.1, Neutrophils # (Auto) 11.4 H, Lymphocytes # (Auto) 1.1 L, Monocytes # (Auto) 0.8, Eosinophils # (Auto) 0.1, Basophils # (Auto) 0.0, Calcium Level 8.5 L Vital Signs Date Time Temp Pulse Resp B/P (MAP) Pulse Ox O2 Delivery O2 Flow Rate FiO2 03/10/19 08:00 97.8 77 17 128/62 (84) 91 03/07/19 14:15 Room Air I&O- Last 24 Hours up to 6 AM 03/10/19 06:00 Intake Total 632.5 ml Output Total 2930 ml Balance -2297.5 ml ART CRUM DO Mar 10, 2019 11:07
[2019-03-10] MEDS ORDERED: KCL 20MEQ IN 100ML SWI (KRUN) 20 MEQ in APPROPRIATE DILUENT 1 EA IV ONE ×2 (12:00)
[2019-03-10] MEDS: SLF 3 ML SYR IV SCH ×2 (14:00→21:32)
[2019-03-10] MEDS ORDERED: POTASSIUM PHOSPHATE INJ 30 MMOL in D5W 500 ML IV ONE (14:00)
[2019-03-10] MEDS ORDERED: KCL 10MEQ IN STERILE WATER 100ML As Ordered ONE (15:31)
--- NOTE | 2019-03-10 18:02 | IPNPDOC ---
Subjective Date Seen The patient was seen on 03/10/19. Time of service 10:20 AM Subjective Chief Complaint/HPI Abdominal pain Events since last encounter The patient reports that his abdominal pain has resolved, and has no other acute complaints Objective Physical Examination Other physical findings PHYSICAL EXAMINATION: VITALS: See below GENERAL APPEARANCE: Well-nourished, well-developed, HEENT: Normocephalic, atraumatic. Mucous members moist and pink. NG tube in kaylynn ce to gravity. Stomach contents or bilious CARDIOVASCULAR: Rate and rhythm. No murmurs, rubs or gallops. LUNGS: Sensation on room air. ABDOMEN: Bowel sounds are present, but more prominent on the left the abdomen is soft and nontender on palpation MUSCULOSKELETAL: Range of motion intact 4 extremities. He has an ankle brace on the lower extremity EXTREMITIES:, 2+ bilateral lower extremity edema. NEUROLOGICAL: CN II to 12 grossly intact. Speech not dysarthric PSYCHIATRIC: Alert and oriented to person, place and time, able to understand and follow all commands Assessment /Plan Assessment Mr. Selby is an 83-year-old gentleman with a past medical history of BPH, hyp ertension and dyslipidemia will be admitted for management of small bowel obstruction secondary to metastatic cancer (primary source to be determined). PLAN: 1, Small bowel obstruction secondary to Metastatic cancer. Primary source of cancer be determined Plan: appreciate oncology and surgery's recommendations, continue NG to suction , IV fluids, Zofran and morphine, surgery planned for tomorrow, IR has been consulted for for a biopsy, 2. Iron deficiency anemia. Hemoglobin has dropped more than 2 points overnight. Plan: Follow up CBC and stool occult, will keep hemoglobin above 7 3 Hypokalemia. 2/2 GI loss and poor PO intake Plan: Replete K & Continue to monitor potassium and magnesium 4.Chronic hypertension. Plan: Monitor blood pressure, and hold meds well. Nothing by mouth, IV hydral azine PRN 5.BPH. Plan: hold oral meds. 6. Obesity. BMI 30.3 DVT. Lovenox on hold Disposition pending clinical course Plan/VTE VTE Prophylaxis Ordered?: Yes (lovenox) VS, I&O, 24H, Fishbone Vital Signs/I&O Vital Signs Date Time Temp Pulse Resp B/P (MAP) Pulse Ox O2 Delivery O2 Flow Rate FiO2 03/10/19 16:00 98.2 86 18 124/58 (80) 92 03/07/19 14:15 Room Air I&O- Last 24 Hours up to 6 AM 03/10/19 06:00 Intake Total 632.5 ml Output Total 2930 ml Balance -2297.5 ml Laboratory Data 24H LABS Laboratory Tests 2 03/10/19 05:33: Immature Granulocyte % (Auto) 0.7, White Blood Count 13.5H, Red Blood Count 3.54L, Hemoglobin 11.4L, Hematocrit 34.5L, Mean Corpuscular Volume 97.5H, Mean Corpuscular Hemoglobin 32.2, Mean Corpuscular Hemoglobin Concent 33.0, Red Cell Distribution Width 12.7, Platelet Count 254, Neutrophils (%) (Auto) 84.7H, Lymphocytes (%) (Auto) 8.0L, Monocytes (%) (Auto) 5.8H, Eosinophils (%) (Auto) 0.7, Basophils (%) (Auto) 0.1, Neutrophils # (Auto) 11.4H, Lymphocytes # (Auto) 1.1L, Monocytes # (Auto) 0.8, Eosinophils # (Auto) 0.1, Basophils # (Auto) 0.0, Reticulocyte # (auto) 52.7, Nucleated Red Blood Cells % (auto) 0.0, Percent Reticulocyte Count 1.5, Reticulocyte Hemoglobin Equivalent 37.6H, Anion Gap 7L, Glomerular Filtration Rate > 60.0, Blood Urea Nitrogen 18, Creatinine 0.82, Sodium Level 140, Potassium Level 2.9*L, Chloride Level 100, Carbon Dioxide Level 33H, Calcium Level 8.5L, Magnesium Level 2.3, Iron Level 27L, Total Iron Binding Capacity 270, Transferrin % Saturation 10.0L, Ferritin 157 CBC/BMP Laboratory Tests 03/10/19 05:33 Red Blood Count 3.54 L, Mean Corpuscular Volume 97.5 H, Mean Corpuscular Hemoglobin 32.2, Mean Corpuscular Hemoglobin Concent 33.0, Red Cell Distribution Width 12.7, Neutrophils (%) (Auto) 84.7 H, Lymphocytes (%) (Auto) 8.0 L, Monocytes (%) (Auto) 5.8 H, Eosinophils (%) (Auto) 0.7, Basophils (%) (Auto) 0.1, Neutrophils # (Auto) 11.4 H, Lymphocytes # (Auto) 1.1 L, Monocytes # (Auto) 0.8, Eosinophils # (Auto) 0.1, Basophils # (Auto) 0.0, Calcium Level 8.5 L TOMASA PETER MD Mar 10, 2019 18:02
[2019-03-10] MEDS: FINASTERIDE 5 MG TAB PO SCH (21:28)
[2019-03-11] VITALS: BP 117/55
[2019-03-11 04:00] VITALS: BP 127/63
[2019-03-11 05:00] VITALS: BP 123/67
[2019-03-11] MEDS: hydrALAZINE INJ 20 MG/ML VIAL IV SCH (05:00)
[2019-03-11 05:54] LABS: BASO % 0.1 % (0.0-1.0); EOS # 0.1 10^3/uL (0.0-0.50); EOS % 0.5 % (0.0-3.0); HEMATOCRIT 34.3 % (42.0-52.0); HEMOGLOBIN 11.1 g/dl (13.5-17.5); LYMPH # 0.9 10^3/uL (1.5-4.5); LYMPH % 6.1 % (24.0-44.0); MEAN CORPUSCULAR HEMOGLOBIN 31.8 pg (27.0-33.0); MEAN CORPUSCULAR HGB CONC 32.4 g/dl (32.0-36.5); MEAN CORPUSCULAR VOLUME 98.3 fl (80.0-96.0); MONO # 0.8 10^3/uL (0.0-0.8); MONO % 5.2 % (0.0-5.0); NEUTROPHILS # 13.1 10^3/uL (1.8-7.7); NEUTROPHILS % 87.5 % (36.0-66.0); PLATELET COUNT, AUTOMATED 233 10^3/uL (150-450); RED BLOOD COUNT 3.49 10^6/uL (4.30-6.10)
[2019-03-11] MEDS: SLF 3 ML SYR IV SCH ×3 (06:00→21:40)
[2019-03-11 06:21] LABS: BLOOD UREA NITROGEN 16 MG/DL (7-18); CALCIUM LEVEL 7.8 MG/DL (8.8-10.2); CARBON DIOXIDE LEVEL 33 MEQ/L (21-32); CHLORIDE LEVEL 101 MEQ/L (98-107); CREATININE FOR GFR 0.89 MG/DL (0.70-1.30); GLOMERULAR FILTRATION RATE > 60.0 (>35); GLUCOSE, FASTING 101 MG/DL (70-100); MAGNESIUM LEVEL 2.4 MG/DL (1.8-2.4); SODIUM LEVEL 139 MEQ/L (136-145)
[2019-03-11] MEDS ORDERED: KCL 20MEQ IN 100ML SWI (KRUN) 20 MEQ in APPROPRIATE DILUENT 1 EA IV ONE ×2 (07:30)
[2019-03-11 08:39] LABS: CA19-9 TUMOR MARKER,CARBOHYDRA 648.5 U/ML (<35.0); FOLATE > 24.0 NG/ML (>5.4); VITAMIN B12 LEVEL 831 PG/ML (247-911)
--- NOTE | 2019-03-11 08:44 | IPNPDOC ---
Text Note Date of Service The patient was seen on 03/11/19. NOTE No acute events overnight. He denies any nausea, emesis, fevers, abd pains, or distention. He is passing flatus. He has tolerated the NGT clamped for 24 hours without any problems. VSSAF NAD abd - soft, slightly distended, NT labs - see below A) 83y/o male with partial SBO secondary to likely metastatic pancreatic CA P) IR for possible bx today ambulate clq diet await return of bowel function Lowell Crum DO VS,Zachary, I+O VS, Zachary, I+O Laboratory Tests 03/10/19 18:10 03/11/19 05:21 Red Blood Count 3.49 L, Mean Corpuscular Volume 98.3 H, Mean Corpuscular Hemoglobin 31.8, Mean Corpuscular Hemoglobin Concent 32.4, Red Cell Distribution Width 12.8, Neutrophils (%) (Auto) 87.5 H, Lymphocytes (%) (Auto) 6.1 L, Mo nocytes (%) (Auto) 5.2 H, Eosinophils (%) (Auto) 0.5, Basophils (%) (Auto) 0.1, Neutrophils # (Auto) 13.1 H, Lymphocytes # (Auto) 0.9 L, Monocytes # (Auto) 0.8, Eosinophils # (Auto) 0.1, Basophils # (Auto) 0.0, Calcium Level 7.8 L Vital Signs Date Time Temp Pulse Resp B/P (MAP) Pulse Ox O2 Delivery O2 Flow Rate FiO2 03/11/19 05:00 123/67 03/11/19 04:00 92.6 81 16 94 03/07/19 14:15 Room Air I&O- Last 24 Hours up to 6 AM 03/11/19 06:00 Intake Total 520 ml Output Total 480 ml Balance 40 ml ART CRUM DO Mar 11, 2019 08:44
[2019-03-11] MEDS: D5W/0.45% SODIUM CHLORIDE 1,000 ML IV SCH ×2 (09:12→21:00)
[2019-03-11] MEDS: KCL 10MEQ/100ML SWI (KRUN) 10 MEQ in APPROPRIATE DILUENT 1 EA IV SCH ×3 (09:13→11:30)
--- NOTE | 2019-03-11 13:08 | IPNPDOC ---
Subjective Date Seen The patient was seen on 03/11/19. Time of Service 10:40 AM Subjective Chief Complaint/HPI Abdominal pain Events since last encounter The patient reports that his abdominal pain has not reoccurred, and he is passing gas. He has not had a bowel movement. Per discussion with nursing staff, the NG was removed early on this morning. Per case management rounds discussion the patient is scheduled for a biopsy by IR today and has been cleared by PT. Objective Physical Examination Other physical findings VITALS: See below GENERAL APPEARANCE: Well-nourished, well-developed, HEENT: Normocephalic, atraumatic. Mucous members moist and pink. NG has been removed CARDIOVASCULAR: Rate and rhythm. No murmurs, rubs or gallops. LUNGS: Sensation on room air. ABDOMEN: Bowel sounds are present, in all quadrants the abdomen is soft and nontender on palpation MUSCULOSKELETAL: Range of motion intact 4 extremities.. 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 NEUROLOGICAL: CN II to 12 grossly intact. Speech not dysarthric PSYCHIATRIC: Alert and oriented to person, place and time, able to understand and follow all commands Assessment /Plan Assessment Mr. Selby is an 83-year-old gentleman with a past medical history of BPH, hypertension and dyslipidemia will be admitted for management of small bowel obstruction secondary to metastatic cancer (primary source to be determined). PLAN: 1, Small bowel obstruction secondary to Metastatic cancer. Primary source of cancer be determined NG has been removed Plan: appreciate oncology and surgery's recommendations, taking a clear liquid diet, IV fluids, Zofran and morphine, biopsied by IR today, with possible plans for surgery pending results 2. Iron deficiency anemia. Hemoglobin has dropped more than 2 points overnight. Plan: Follow up CBC and stool occult, will keep hemoglobin above 7 3 Hypokalemia. 2/2 GI loss and poor PO intake Plan: Replete K & Continue to monitor potassium and magnesium 4.Chronic hypertension. Plan: Monitor blood pressure, and hold meds well. Nothing by mouth, IV hydralazine PRN 5.BPH. Plan: hold oral meds. 6. Obesity. BMI 30.3 DVT. Lovenox on hold Disposition transferred to general medical floor today with plans to go home soon pending clinical course Plan/VTE VTE Prophylaxis Ordered?: Yes (lovenox) VS, I&O, 24H, Fishbone Vital Signs/I&O Vital Signs Date Time Temp Pulse Resp B/P (MAP) Pulse Ox O2 Delivery O2 Flow Rate FiO2 03/11/19 12:25 97.8 78 16 94 03/11/19 05:00 123/67 03/07/19 14:15 Room Air I&O- Last 24 Hours up to 6 AM 03/11/19 06:00 Intake Total 520 ml Output Total 480 ml Balance 40 ml Laboratory Data 24H LABS Laboratory Tests 2 03/11/19 05:21: Immature Granulocyte % (Auto) 0.6, White Blood Count 15.0H, Red Blood Count 3.49L, Hemoglobin 11.1L, Hematocrit 34.3L, Mean Corpuscular Volume 98.3H, Mean Corpuscular Hemoglobin 31.8, Mean Corpuscular Hemoglobin Concent 32.4, Red Cell Distribution Width 12.8, Platelet Count 233, Neutrophils (%) (Auto) 87.5H, Lymphocytes (%) (Auto) 6.1L, Monocytes (%) (Auto) 5.2H, Eosinophils (%) (Auto) 0.5, Basophils (%) (Auto) 0.1, Neutrophils # (Auto) 13.1H, Lymphocytes # (Auto) 0.9L, Monocytes # (Auto) 0.8, Eosinophils # (Auto) 0.1, Basophils # (Auto) 0.0, Nucleated Red Blood Cells % (auto) 0.0, Anion Gap 5L, Glomerular Filtration Rate > 60.0, Blood Urea Nitrogen 16, Creatinine 0.89, Sodium Level 139, Potassium Level 3.0#L, Chloride Level 101, Carbon Dioxide Level 33H, Calcium Level 7.8L, Magnesium Level 2.4 CBC/BMP Laboratory Tests 03/10/19 18:10 03/11/19 05:21 Red Blood Count 3.49 L, Mean Corpuscular Volume 98.3 H, Mean Corpuscular Hemoglobin 31.8, Mean Corpuscular Hemoglobin Concent 32.4, Red Cell Distribution Width 12.8, Neutrophils (%) (Auto) 87.5 H, Lymphocytes (%) (Auto) 6.1 L, Monocytes (%) (Auto) 5.2 H, Eosinophils (%) (Auto) 0.5, Basophils (%) (Auto) 0.1, Neutrophils # (Auto) 13.1 H, Lymphocytes # (Auto) 0.9 L, Monocytes # (Auto) 0.8, Eosinophils # (Auto) 0.1, Basophils # (Auto) 0.0, Calcium Level 7.8 L TOMASA PETER MD Mar 11, 2019 13:08
[2019-03-11] MEDS ORDERED: LIDOCAINE 1% MDV 20ML VIAL As Ordered ONE (13:21)
[2019-03-11] MEDS ORDERED: KCL 10MEQ/100ML SWI (KRUN) 10 MEQ in APPROPRIATE DILUENT 1 EA IV SCH (15:00)
[2019-03-11 16:00] VITALS: BP 120/62
[2019-03-11 20:00] VITALS: BP 112/56
[2019-03-11] MEDS: FINASTERIDE 5 MG TAB PO SCH (21:12)
[2019-03-11] MEDS: MORPHINE 4 MG/ML 1ML VIAL/SYRINGE (J2270) IV PRN (21:12)
[2019-03-12 06:00] VITALS: BP 116/59
[2019-03-12] MEDS: SLF 3 ML SYR IV SCH ×3 (06:15→21:14)
[2019-03-12 06:34] LABS: BASO % 0.2 % (0.0-1.0); EOS # 0.2 10^3/uL (0.0-0.50); HEMATOCRIT 32.1 % (42.0-52.0); HEMOGLOBIN 10.6 g/dl (13.5-17.5); LYMPH # 1.3 10^3/uL (1.5-4.5); LYMPH % 7.1 % (24.0-44.0); MEAN CORPUSCULAR HEMOGLOBIN 32.2 pg (27.0-33.0); MEAN CORPUSCULAR VOLUME 97.6 fl (80.0-96.0); MONO # 0.8 10^3/uL (0.0-0.8); MONO % 4.3 % (0.0-5.0); NEUTROPHILS # 16.3 10^3/uL (1.8-7.7); NEUTROPHILS % 86.8 % (36.0-66.0); PLATELET COUNT, AUTOMATED 235 10^3/uL (150-450); RED BLOOD COUNT 3.29 10^6/uL (4.30-6.10); WHITE BLOOD COUNT 18.7 10^3/uL (4.0-10.0)
[2019-03-12 07:10] LABS: BLOOD UREA NITROGEN 15 MG/DL (7-18); CALCIUM LEVEL 7.4 MG/DL (8.8-10.2); CARBON DIOXIDE LEVEL 31 MEQ/L (21-32); CHLORIDE LEVEL 102 MEQ/L (98-107); CREATININE FOR GFR 0.78 MG/DL (0.70-1.30); GLOMERULAR FILTRATION RATE > 60.0 (>35); GLUCOSE, FASTING 118 MG/DL (70-100); MAGNESIUM LEVEL 2.4 MG/DL (1.8-2.4); POTASSIUM SERUM 3.1 MEQ/L (3.5-5.1); SODIUM LEVEL 139 MEQ/L (136-145)
--- NOTE | 2019-03-12 08:34 | IPNPDOC ---
Text Note Date of Service The patient was seen on 03/12/19. NOTE No acute events overnight. He denies any nausea, emesis, fevers, abd pains, or distention. He is passing flatus, and had a few soft BMs. Biopsy was successful yesterday. VSSAF NAD abd - soft, slightly distended, NT labs - see below A) 83y/o male with partial SBO secondary to likely metastatic pancreatic CA that has resolved P) ambulate reg low residue diet d/c home f/u with oncology NOEMÍ to discuss pathology and treatment options no need to follow up with surgery unless there is a problem. Lowell Crum DO VS,Fishbone, I+O VS, Fishbone, I+O Laboratory Tests 03/12/19 06:20 Red Blood Count 3.29 L, Mean Corpuscular Volume 97.6 H, Mean Corpuscular Hemoglobin 32.2, Mean Corpuscular Hemoglobin Concent 33.0, Red Cell Distribution Width 12.9, Neutrophils (%) (Auto) 86.8 H, Lymphocytes (%) (Auto) 7.1 L, Monocytes (%) (Auto) 4.3, Eosinophils (%) (Auto) 1.0, Basophils (%) (Auto) 0.2, Neutrophils # (Auto) 16.3 H, Lymphocytes # (Auto) 1.3 L, Monocytes # (Auto) 0.8, Eosinophils # (Auto) 0.2, Basophils # (Auto) 0.0, Calcium Level 7.4 L Vital Signs Date Time Temp Pulse Resp B/P (MAP) Pulse Ox O2 Delivery O2 Flow Rate FiO2 03/12/19 06:00 98.2 73 16 116/59 (78) 93 03/07/19 14:15 Room Air I&O- Last 24 Hours up to 6 AM 03/12/19 06:00 Intake Total 240 ml Output Total 250 ml Balance -10 ml ART CRUM DO Mar 12, 2019 08:34
--- NOTE | 2019-03-12 09:12 | REP ---
ULTRASOUND-GUIDED MESENTERIC BIOPSY The procedure was performed under the direct supervision of Dr. Kent. The patient has a history of multiple neoplastic metastatic nodules seen in the omentum and mesentery seen on a previous CT scan dated 03/07/2019. The risks and benefits of the procedure were explained to the patient and informed consent was obtained. The mesenteric nodule in the right upper quadrant was localized for biopsy using ultrasound guidance. The skin was prepped and draped in a sterile fashion. 1% lidocaine was used as a local anesthetic. Using ultrasound guidance a 17/18 gauge coaxial needle biopsy system was inserted and advanced into the nodule. Eight core biopsy samples were obtained and sent to lab. The patient tolerated the procedure well and there were no immediate complications. After the appropriate amount of monitored convalescence the patient was discharged from the department. Reviewed by NICK Garcia 03/11/2019 04:38 P Electronically Signed by Ian Kent MD 03/12/2019 09:04 A
[2019-03-12] MEDS: POTASSIUM CHLORIDE 10 MEQ SR TABLET PO SCH ×3 (09:38→20:07)
[2019-03-12] MEDS: KCL 10MEQ/100ML SWI (KRUN) 10 MEQ in APPROPRIATE DILUENT 1 EA IV SCH ×2 (10:16→11:29)
--- NOTE | 2019-03-12 10:31 | CR ---
DATE OF CONSULTATION: 03/08/2019 REASON FOR CONSULTATION: Small bowel obstruction. HISTORY OF PRESENT ILLNESS: The patient is an 83-year-old male who was admitted due to diffuse abdominal pain associated with nausea, vomiting. This has been going on for about a day or two and getting progressively worse. In the emergency room (ER), he was found to have signs of likely pancreatic mass with a metastatic lesion into the right lower abdomen resulting in obstruction. He was admitted to the medicine service. He already has a nasogastric (NG) tube in place. Oncology has also already discussed and evaluated him, and I was called to see him due to the obstruction. He has not had any other symptoms of bowel obstruction in the past. No prior surgeries to his abdomen. Denies any fevers or chills. No more nausea or vomiting with the NG tube in place. His abdomen is already significantly softer and the pain is gone. He is still not passing any gas and no bowel movement since admission. PAST MEDICAL HISTORY: 1. Hypertension. 2. BPH. 3. Dyslipidemia. PAST SURGICAL HISTORY: Right lower extremity. SOCIAL HISTORY: Denies drug, alcohol, tobacco abuse. FAMILY HISTORY: Noncontributory. ALLERGIES: NONE. HOME MEDS: Please see med rec. REVIEW OF SYSTEMS: Pertinent positives and negatives as stated in the HPI. PHYSICAL EXAMINATION: General: Alert and oriented times three. No acute distress. Vital signs: Temperature 98.5, pulse 80, respirations 18, blood pressure 108/55, pulse oximetry 95% on room air. HEENT: Pupils equal, round and react to light and accommodation. Heart: S1, S2, regular rate and rhythm. Lungs: Clear to auscultation bilaterally. Abdomen: Soft, distended, nontender. Extremities: No clubbing, cyanosis, or edema. LABS: White count 15.4, hemoglobin 13.3, platelets 255. Potassium is 3.8, creatinine 1.01, total bilirubin 1.1, direct bilirubin 0.3. IMAGING: CT abdomen and pelvis shows a mass at the tail of pancreas about 3.9 x 3 cm. Abnormal soft tissue in the superior omentum with neoplastic infiltrates and metastatic disease. There is also scattered infiltration of the mesentery more so in the upper pelvis to the right of midline affecting small bowel loops in this location appearing to cause a small bowel obstruction. ASSESSMENT AND PLAN: The patient is an 83-year-old male with signs and symptoms suspicious for pancreatic cancer with metastatic disease to the small bowel resulting in small bowel obstruction. Recommendation at this time is to treat medically with intravenous (IV) fluids, nothing by mouth, NG tube to low intermittent suction, and antibiotics. I discussed his disease with him and the best case scenario is we obtain a biopsy and get him started on some sort of palliative treatment to shrink this disease. Surgical intervention would be palliative at best and depending on the extent of the mass causing the obstructive process he may only be able to have an ileostomy to bypass the area. At this point, we will do our best to treat him medically and avoid any surgical intervention because that would also postpone him starting any chemo. He understands all of this and I will continue to follow with you.
[2019-03-12] MEDS ORDERED: ONDANSETRON 4MG/2ML VIAL (J2405) IV PRN (10:45)
--- NOTE | 2019-03-12 11:54 | REP ---
Clinical: Abdominal pain and distension. Rule out small bowel obstruction. Technique: Two supine views of the abdomen and pelvis. Findings: Bowel gas pattern is consistent with high-grade small bowel obstruction and correlation is required. No obvious free air to suggest perforation. Evidence for prior cholecystectomy. Skeletal structures demonstrate age-related degenerative changes. Impression: Findings consistent with high-grade small bowel obstruction. Electronically Signed by Derek Austin MD 03/12/2019 11:45 A
[2019-03-12 12:00] VITALS: BP 158/77
[2019-03-12 14:00] VITALS: BP 128/65
[2019-03-12] MEDS: D5W/0.45% SODIUM CHLORIDE 1,000 ML IV SCH (15:46)
[2019-03-12] MEDS ORDERED: METOPROLOL 5 MG/5 ML VIAL IV PRN (19:00)
--- NOTE | 2019-03-12 19:01 | IPNPDOC ---
Subjective Date Seen The patient was seen on 03/12/19. Time of service 6:20 PM Subjective Chief Complaint/HPI The patient had episodes of emesis today and NG to suction was resumed . Her discussion with nursing staff. He vomited about 800 ml, and about 1.5 L has been suction so far. The patient denies having any abdominal pain or any acute complaints right now Objective Physical Examination Other physical findings VITALS: See below GENERAL APPEARANCE: Well-nourished, well-developed, HEENT: Normocephalic, atraumatic. Mucous members moist and pink. NG to suction CARDIOVASCULAR: Rate and rhythm. No murmurs, rubs or gallops. LUNGS: Sensation on room air. ABDOMEN: Bowel sounds are present, in all quadrants the abdomen is soft and nontender on palpation MUSCULOSKELETAL: Range of motion intact 4 extremities.. 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 NEUROLOGICAL: CN II to 12 grossly intact. Speech not dysarthric PSYCHIATRIC: Alert and oriented to person, place and time, able to understand and follow all commands Assessment /Plan Assessment Mr. Selby is an 83-year-old gentleman with a past medical history of BPH, hypertension and dyslipidemia will be admitted for management of small bowel obstruction secondary to metastatic pancreatic cancer. PLAN: 1, Small bowel obstruction secondary to Metastatic Pancretic Cancer. Pathology results showed findings consistent with metastatic pancreatic cancer. KUB shows findings consistent with high-grade small bowel obstruction Plan: appreciate oncology and surgery's recommendations, NG to suction, nothing by mouth, IV fluids, Zofran and morphine / f/u w Oncology on treatment plan 2. Iron deficiency anemia. Hemoglobin has dropped more than 2 points overnight. Plan: Follow up CBC and stool occult, will keep hemoglobin above 7 3 Hypokalemia. 2/2 GI loss and poor PO intake Plan: Replete K & Continue to monitor potassium and magnesium 4.Chronic hypertension. Plan: Monitor blood pressure, and hold meds well. Nothing by mouth, IV metoprolol PRN 5.BPH. Plan: hold oral meds. 6. Obesity. BMI 30.3 DVT. Lovenox on hold Disposition pending clinical course Plan/VTE VTE Prophylaxis Ordered?: Yes (lovenox) VS, I&O, 24H, Fishbone Vital Signs/I&O Vital Signs Date Time Temp Pulse Resp B/P (MAP) Pulse Ox O2 Delivery O2 Flow Rate FiO2 03/12/19 14:00 97.9 77 16 128/65 (86) 92 03/07/19 14:15 Room Air I&O- Last 24 Hours up to 6 AM 03/12/19 06:00 Intake Total 240 ml Output Total 250 ml Balance -10 ml Laboratory Data 24H LABS Laboratory Tests 2 03/12/19 06:20: Immature Granulocyte % (Auto) 0.6, White Blood Count 18.7H, Red Blood Count 3.29L, Hemoglobin 10.6L, Hematocrit 32.1L, Mean Corpuscular Volume 97.6H, Mean Corpuscular Hemoglobin 32.2, Mean Corpuscular Hemoglobin Concent 33.0, Red Cell Distribution Width 12.9, Platelet Count 235, Neutrophils (%) (Auto) 86.8H, Lymphocytes (%) (Auto) 7.1L, Monocytes (%) (Auto) 4.3, Eosinophils (%) (Auto) 1.0, Basophils (%) (Auto) 0.2, Neutrophils # (Auto) 16.3H, Lymphocytes # (Auto) 1.3L, Monocytes # (Auto) 0.8, Eosinophils # (Auto) 0.2, Basophils # (Auto) 0.0, Nucleated Red Blood Cells % (auto) 0.0, Anion Gap 6L, Glomerular Filtration Rate > 60.0, Blood Urea Nitrogen 15, Creatinine 0.78, Sodium Level 139, Potassium Level 3.1L, Chloride Level 102, Carbon Dioxide Level 31, Calcium Level 7.4L, Magnesium Level 2.4 03/12/19 12:10: Methicillin-Resist S.aureus DNA PCR NOT DETECTED CBC/BMP Laboratory Tests 03/12/19 06:20 Red Blood Count 3.29 L, Mean Corpuscular Volume 97.6 H, Mean Corpuscular Hemoglobin 32.2, Mean Corpuscular Hemoglobin Concent 33.0, Red Cell Distribution Width 12.9, Neutrophils (%) (Auto) 86.8 H, Lymphocytes (%) (Auto) 7.1 L, Monocytes (%) (Auto) 4.3, Eosinophils (%) (Auto) 1.0, Basophils (%) (Auto) 0.2, Neutrophils # (Auto) 16.3 H, Lymphocytes # (Auto) 1.3 L, Monocytes # (Auto) 0.8, Eosinophils # (Auto) 0.2, Basophils # (Auto) 0.0, Calcium Level 7.4 L TOMASA PETER MD Mar 12, 2019 19:01
[2019-03-12] MEDS: FINASTERIDE 5 MG TAB PO SCH (20:07)
[2019-03-12 20:19] VITALS: BP 137/65
[2019-03-13] MEDS: D5W/0.45% SODIUM CHLORIDE 1,000 ML IV SCH ×2 (00:45→22:31)
[2019-03-13] MEDS: MORPHINE 4 MG/ML 1ML VIAL/SYRINGE (J2270) IV PRN ×3 (01:01→16:17)
[2019-03-13] MEDS: SLF 3 ML SYR IV SCH ×3 (05:35→22:27)
[2019-03-13 06:00] VITALS: BP 138/63
[2019-03-13 06:23] LABS: BASO # 0.1 10^3/uL (0.0-0.2); BASO % 0.3 % (0.0-1.0); EOS # 0.2 10^3/uL (0.0-0.50); EOS % 1.2 % (0.0-3.0); HEMATOCRIT 33.7 % (42.0-52.0); LYMPH # 1.5 10^3/uL (1.5-4.5); LYMPH % 8.2 % (24.0-44.0); MEAN CORPUSCULAR HEMOGLOBIN 32.4 pg (27.0-33.0); MEAN CORPUSCULAR HGB CONC 32.6 g/dl (32.0-36.5); MEAN CORPUSCULAR VOLUME 99.1 fl (80.0-96.0); MONO # 0.7 10^3/uL (0.0-0.8); NEUTROPHILS # 15.3 10^3/uL (1.8-7.7); NEUTROPHILS % 85.2 % (36.0-66.0); PLATELET COUNT, AUTOMATED 237 10^3/uL (150-450); WHITE BLOOD COUNT 17.9 10^3/uL (4.0-10.0)
[2019-03-13 06:41] LABS: BLOOD UREA NITROGEN 12 MG/DL (7-18); CARBON DIOXIDE LEVEL 35 MEQ/L (21-32); CHLORIDE LEVEL 99 MEQ/L (98-107); CREATININE FOR GFR 0.88 MG/DL (0.70-1.30); GLOMERULAR FILTRATION RATE > 60.0 (>35); GLUCOSE, FASTING 119 MG/DL (70-100); MAGNESIUM LEVEL 2.4 MG/DL (1.8-2.4); POTASSIUM SERUM 3.4 MEQ/L (3.5-5.1); SODIUM LEVEL 139 MEQ/L (136-145)
[2019-03-13] MEDS: PIPERACILLIN/TAZOBACTAM SOD 3.375 GM in D5W MINI-BAG PLUS 50 ML IV SCH ×3 (08:52→22:31)
[2019-03-13] MEDS: POTASSIUM CHLORIDE 10 MEQ SR TABLET PO SCH ×3 (08:52→22:31)
--- NOTE | 2019-03-13 10:18 | IPNPDOC ---
Text Note Date of Service The patient was seen on 03/13/19. NOTE No acute events overnight. He denies any nausea, emesis, fevers, abd pains, or distention. He is passing flatus, but no BM in last 24 hours. VSSAF NAD abd - soft, non distended, NT labs - see below A) 83y/o male with partial SBO secondary to metastatic pancreatic CA that is resolving P) ambulate clamp NGT clq diet If he tolerates is clamped today with clears then we can attempt removal again tomorrow and keep him on the clq diet. If he can't tolerate clears, then he will need surgery for either a resection and anastamosis vs. diverting ostomy. Either way, that will postpone any chemo for atleast 2 weeks. I will see him in the am to determine the best next step. Lowell Crum DO VS,Fishbone, I+O VS, Fishbone, I+O Laboratory Tests 03/13/19 06:07 Red Blood Count 3.40 L, Mean Corpuscular Volume 99.1 H, Mean Corpuscular Hemoglobin 32.4, Mean Corpuscular Hemoglobin Concent 32.6, Red Cell Distribution Width 12.9, Neutrophils (%) (Auto) 85.2 H, Lymphocytes (%) (Auto) 8.2 L, Monocytes (%) (Auto) 4.0, Eosinophils (%) (Auto) 1.2, Basophils (%) (Auto) 0.3, Neutrophils # (Auto) 15.3 H, Lymphocytes # (Auto) 1.5, Monocytes # (Auto) 0.7, Eosinophils # (Auto) 0.2, Basophils # (Auto) 0.1, Calcium Level 8.0 L Vital Signs Date Time Temp Pulse Resp B/P (MAP) Pulse Ox O2 Delivery O2 Flow Rate FiO2 03/13/19 06:00 98.2 76 18 138/63 (88) 91 03/07/19 14:15 Room Air I&O- Last 24 Hours up to 6 AM 03/13/19 06:00 Intake Total 720 ml Output Total 2075 ml Balance -1355 ml ART CRUM DO Mar 13, 2019 10:18
[2019-03-13 14:00] VITALS: BP 159/76
[2019-03-13] MEDS ORDERED: BUPIVACAINE/EPIN 0.25% 30 ML VIAL As Ordered ONE ×2 (17:34→17:47)
--- NOTE | 2019-03-13 19:04 | IPNPDOC ---
Subjective Date Seen The patient was seen on 03/13/19. Subjective Chief Complaint/HPI 83m with hx of bph admitted with sbo and found to have pancreatic cancer pt states he has been tolerating liquids but has been unable to tolerate food. He is aware of his diagnosis, however patient and family have several questions regarding prognosis and the treatment plan. I was informed the oncologist is on her way to speak with them Full ROS was performed and negative except as documented above Objective Physical Examination General Exam: Positive: Alert, Cooperative, No Acute Distress Eye Exam: Positive: PERRLA, Conjunctiva & lids normal, EOMI ENT Exam: Positive: Atraumatic, Mucous membr. moist/pink, Pharynx Normal Neck Exam: Positive: Supple; Negative: JVD, thyromegaly Chest Exam: Positive: Clear to auscultation, Normal air movement Heart Exam: Positive: Rate Normal, Regular Rhythm, Normal S1, Normal S2; Negative: Murmurs, Rubs Abdomen Exam: Positive: Normal bowel sounds, Soft; Negative: Tenderness, Hepatospenomegaly Extremity Exam: Positive: Normal pulses; Negative: Clubbing, Cyanosis, Edema Skin Exam: Positive: Nl turgor and temperature; Negative: Rash, Breakdown Neuro Exam: Positive: Normal Gait, Normal Speech, Cranial Nerves 3-12 NL, Reflexes 2+ Psych Exam: Positive: Mental status NL, Mood NL, Oriented x 3 Assessment /Plan Assessment 83m p/w high grade sbo and newly diagnosed metastatic pancreatic cancer Pancreatic cancer mets to mesentery oncology consulting will follow up prognosis and treatment plan goc deferred until after Dr Teresa's discussion with them SBO surgery following pt with ng tube clear liquid diet possibility of surgical intervention raised will depend on goc and prognosis Plan/VTE VTE Prophylaxis Ordered?: Yes (lovenox) VS, I&O, 24H, Fishbone Vital Signs/I&O Vital Signs Date Time Temp Pulse Resp B/P (MAP) Pulse Ox O2 Delivery O2 Flow Rate FiO2 03/13/19 17:07 16 94 03/13/19 14:00 98.3 83 159/76 (103) 03/07/19 14:15 Room Air I&O- Last 24 Hours up to 6 AM 03/13/19 06:00 Intake Total 720 ml Output Total 2075 ml Balance -1355 ml Laboratory Data 24H LABS Laboratory Tests 2 03/13/19 06:07: Immature Granulocyte % (Auto) 1.1, White Blood Count 17.9H, Red Blood Count 3.40L, Hemoglobin 11.0L, Hematocrit 33.7L, Mean Corpuscular Volume 99.1H, Mean Corpuscular Hemoglobin 32.4, Mean Corpuscular Hemoglobin Concent 32.6, Red Cell Distribution Width 12.9, Platelet Count 237, Neutrophils (%) (Auto) 85.2H, Lymphocytes (%) (Auto) 8.2L, Monocytes (%) (Auto) 4.0, Eosinophils (%) (Auto) 1.2, Basophils (%) (Auto) 0.3, Neutrophils # (Auto) 15.3H, Lymphocytes # (Auto) 1.5, Monocytes # (Auto) 0.7, Eosinophils # (Auto) 0.2, Basophils # (Auto) 0.1, Nucleated Red Blood Cells % (auto) 0.0, Anion Gap 5L, Glomerular Filtration Rate > 60.0, Blood Urea Nitrogen 12, Creatinine 0.88, Sodium Level 139, Potassium Level 3.4L, Chloride Level 99, Carbon Dioxide Level 35H, Calcium Level 8.0L, Magnesium Level 2.4 CBC/BMP Laboratory Tests 03/13/19 06:07 Red Blood Count 3.40 L, Mean Corpuscular Volume 99.1 H, Mean Corpuscular Hemoglobin 32.4, Mean Corpuscular Hemoglobin Concent 32.6, Red Cell Distribution Width 12.9, Neutrophils (%) (Auto) 85.2 H, Lymphocytes (%) (Auto) 8.2 L, Monocytes (%) (Auto) 4.0, Eosinophils (%) (Auto) 1.2, Basophils (%) (Auto) 0.3, Neutrophils # (Auto) 15.3 H, Lymphocytes # (Auto) 1.5, Monocytes # (Auto) 0.7, Eosinophils # (Auto) 0.2, Basophils # (Auto) 0.1, Calcium Level 8.0 L WILMER MARTINEZ MD Mar 13, 2019 19:04
[2019-03-13] MEDS ORDERED: ZOSYN 3.375 GM VIAL (J2543) As Ordered ONE (20:15)
[2019-03-13] MEDS ORDERED: fentaNYL 100 MCG/2 ML INJECTION (J3010) As Ordered ONE (20:40)
[2019-03-13] MEDS ORDERED: HYDROmorphone HCL 2 MG/ML 1ML VIAL (J1170) As Ordered ONE (20:40)
[2019-03-13] MEDS ORDERED: ROCURONIUM BROMIDE 50 MG/5 ML VIAL As Ordered ONE (20:40)
[2019-03-13] MEDS ORDERED: PHENYLephrine HCL 500 MCG/5 ML (100MCG/ML) SYRINGE (J2370) As Ordered ONE (20:40)
[2019-03-13] MEDS ORDERED: LIDOCAINE 2% INJ 100 MG/5 ML SDV (FOR ANES.) As Ordered ONE (20:40)
[2019-03-13] MEDS ORDERED: SUCCINYLCHOLINE 100 MG/5 ML SYRINGE (J0330) As Ordered ONE (20:40)
[2019-03-13] MEDS ORDERED: ONDANSETRON 4MG/2ML VIAL (J2405) As Ordered ONE (20:40)
[2019-03-13] MEDS ORDERED: MIDAZOLAM INJ 2 MG/2 ML VIAL (J2250) As Ordered ONE (20:40)
[2019-03-13] MEDS ORDERED: dexameTHASONE 4 MG/ML 1ML VIAL (J1100) As Ordered ONE (20:40)
[2019-03-13] MEDS ORDERED: PROPOFOL 200 MG/20 ML VIAL As Ordered ONE (20:40)
[2019-03-13] MEDS ORDERED: SUGAMMADEX SODIUM 500 MG/5 ML VIAL (BRIDION) As Ordered ONE (20:40)
[2019-03-13] MEDS ORDERED: fentaNYL 100 MCG/2 ML INJECTION (J3010) IV PRN (21:30)
[2019-03-13] MEDS ORDERED: HYDROMORPHONE HCL 0.5 MG/ 0.5 ML SYRINGE (J1170 PER 1) IV PRN (21:30)
[2019-03-13] MEDS ORDERED: METOCLOPRAMIDE INJ 10MG/2ML VIAL (J2765) IV PRN (21:30)
[2019-03-13] MEDS ORDERED: LR 1,000 ML IV SCH (21:30)
[2019-03-13] MEDS ORDERED: ONDANSETRON 4MG/2ML VIAL (J2405) IV PRN (21:30)
[2019-03-13 22:00] VITALS: BP 126/64
[2019-03-13 22:30] VITALS: BP 126/64
[2019-03-13] MEDS: FINASTERIDE 5 MG TAB PO SCH (22:31)
[2019-03-13] MEDS: KETOROLAC 30 MG/ML VIAL (J1885) IV PRN (22:43)
[2019-03-13 23:00] VITALS: BP 125/64
--- NOTE | 2019-03-13 23:10 | RO ---
DATE OF PROCEDURE: 03/13/2019 PREOPERATIVE DIAGNOSIS: Small bowel obstruction. POSTOPERATIVE DIAGNOSES: Small bowel obstruction with metastatic pancreatic cancer with peritoneal and multiple small bowel masses. OPERATIVE PROCEDURE: Laparoscopic evaluation with mini laparotomy and small bowel resection, primary anastomosis. SURGEON: Feroz Crum DO MRI SPECIALIST: Fan Brunner MD who assisted with evaluation of colon, retraction and creation of small bowel anastomosis. ANESTHESIA: General. ESTIMATED BLOOD LOSS: 20 mL COMPLICATIONS: None. INDICATION FOR THE PROCEDURE: The patient is 83-year-old male with metastatic pancreatic cancer with small bowel obstruction secondary to metastatic disease in the small bowel. Recommendation was to proceed with exploratory laparoscopy, possible laparotomy. The risks and benefits of the procedure not limited to but including bleeding, infection, hernia formation, damage to surrounding structures, need for further surgery were discussed in detail with the patient and informed was obtained and procedure was planned. DESCRIPTION OF PROCEDURE The patient brought back to operating room three and after sufficient sedation the abdomen was sterilely prepped and draped and a Ocasio catheter was placed. Next a time-out was done to confirm proper patient and proper procedure. Following that, a 5 mm incision made in the left lower quadrant, Veress needle inserted and the abdomen was insufflated to 50 mmHg. Next, the Veress needle was removed. A 5 m OptiVu port was used to gain access to the abdomen. Once the abdomen was entered, there was lesions in the omentum, transverse colon, peritoneum and in small bowel identified diffusely. Another 5 mm port was placed in the left lower abdomen. The small bowel was run proximal to distal identifying a transition point with a large mass in the colon and the mesentery. There was decompressed bowel proximal and distal to this point. I was able to mobilize this point to the midline. We made a midline laparotomy approximately 6 cm in length, decompressed the abdomen and brought the lesion out through the abdominal wall. I was able to create two windows in the mesentery, proximal and distal, then using the Enseal was able to cut through the small bowel mesentery and between the two ends. #3-0 Vicryl suture was used to reapproximate the [id number] loops of small bowel proximally and distally. Two small enterotomies were made and EMILIA 75 stapler blue load was used to create a [id number] anastomosis. Once that was completed it was tucked back inside the abdomen. Some Latisha was placed along the mesentery where there was some oozing. The abdomen was then examined one last time to confirm hemostasis. The fascia was then reapproximated with interrupted #0 Vicryl [id number] sutures. The skin was brought back together with ed. The abdomen was cleaned and dried, 4x4 and tape were applied thus ending the procedure.
[2019-03-14] VITALS: BP 122/63
[2019-03-14 01:00] VITALS: BP 123/63
[2019-03-14] MEDS: PIPERACILLIN/TAZOBACTAM SOD 3.375 GM in D5W MINI-BAG PLUS 50 ML IV SCH ×4 (03:20→21:34)
[2019-03-14] MEDS: SLF 3 ML SYR IV SCH ×3 (05:44→22:00)
[2019-03-14] MEDS: KETOROLAC 30 MG/ML VIAL (J1885) IV PRN ×2 (05:44→15:13)
[2019-03-14 06:23] LABS: BASO % 0.2 % (0.0-1.0); EOS % 0.1 % (0.0-3.0); HEMATOCRIT 33.4 % (42.0-52.0); LYMPH # 1.1 10^3/uL (1.5-4.5); LYMPH % 7.3 % (24.0-44.0); MEAN CORPUSCULAR HEMOGLOBIN 31.4 pg (27.0-33.0); MEAN CORPUSCULAR HGB CONC 32.9 g/dl (32.0-36.5); MEAN CORPUSCULAR VOLUME 95.4 fl (80.0-96.0); MONO # 0.5 10^3/uL (0.0-0.8); MONO % 3.4 % (0.0-5.0); NEUTROPHILS # 13.4 10^3/uL (1.8-7.7); NEUTROPHILS % 87.8 % (36.0-66.0); PLATELET COUNT, AUTOMATED 245 10^3/uL (150-450); WHITE BLOOD COUNT 15.3 10^3/uL (4.0-10.0)
[2019-03-14 06:50] LABS: BLOOD UREA NITROGEN 14 MG/DL (7-18); CALCIUM LEVEL 7.7 MG/DL (8.8-10.2); CARBON DIOXIDE LEVEL 34 MEQ/L (21-32); CHLORIDE LEVEL 98 MEQ/L (98-107); CREATININE FOR GFR 1.02 MG/DL (0.70-1.30); GLOMERULAR FILTRATION RATE > 60.0 (>35); GLUCOSE, FASTING 145 MG/DL (70-100); MAGNESIUM LEVEL 2.5 MG/DL (1.8-2.4); POTASSIUM SERUM 3.7 MEQ/L (3.5-5.1); SODIUM LEVEL 138 MEQ/L (136-145)
[2019-03-14] MEDS: POTASSIUM CHLORIDE 10 MEQ SR TABLET PO SCH ×3 (08:56→21:34)
[2019-03-14] MEDS: SENOKOT S TAB PO SCH ×2 (08:57→21:34)
[2019-03-14] MEDS: D5W/0.45% SODIUM CHLORIDE 1,000 ML IV SCH (08:57)
--- NOTE | 2019-03-14 09:07 | IPNPDOC ---
Text Note Date of Service The patient was seen on 03/14/19. NOTE Last evening he went to the OR for SBR due to an obstruction that was failing medical treatment. He denies any nausea, emesis, fevers, abd pains, or distention. He is passing flatus, but no BM. VSSAF NAD abd - soft, non distended, TTP appropriate, dressing c/d/i labs - see below A) 83y/o male with partial SBO secondary to metastatic pancreatic CA POD#1 s/p sbr with primary anastamosis P) ambulate clamp NGT during meals, will dc after a BM clq diet will d/c ngt and start regular diet after a BM, and plan to d/c home once tolerating reg diet Lowell Crum DO VS,Zachary, I+O VS, Zachary, I+O Laboratory Tests 03/14/19 06:09 Red Blood Count 3.50 L, Mean Corpuscular Volume 95.4, Mean Corpuscular Hemoglobin 31.4, Mean Corpuscular Hemoglobin Concent 32.9, Red Cell Distribution Width 13.0, Neutrophils (%) (Auto) 87.8 H, Lymphocytes (%) (Auto) 7.3 L, Monocytes (%) (Auto) 3.4, Eosinophils (%) (Auto) 0.1, Basophils (%) (Auto) 0.2, Neutrophils # (Auto) 13.4 H, Lymphocytes # (Auto) 1.1 L, Monocytes # (Auto) 0.5, Eosinophils # (Auto) 0.0, Basophils # (Auto) 0.0, Calcium Level 7.7 L Vital Signs Date Time Temp Pulse Resp B/P (MAP) Pulse Ox O2 Delivery O2 Flow Rate FiO2 03/14/19 01:00 98.0 70 13 123/63 (83) 94 1.0 I&O- Last 24 Hours up to 6 AM 03/14/19 06:00 Intake Total 1100 ml Output Total 1495 ml Balance -395 ml ART CRUM DO Mar 14, 2019 09:07
[2019-03-14] MEDS: MORPHINE 4 MG/ML 1ML VIAL/SYRINGE (J2270) IV PRN (09:11)
[2019-03-14] MEDS: NORCO, ANEXSIA 5/325MG TABLET (HYDROcodone/ACETAMINOPHEN) PO PRN ×2 (09:12→15:13)
--- NOTE | 2019-03-14 18:15 | IPNPDOC ---
Subjective Date Seen The patient was seen on 03/14/19. Subjective Chief Complaint/HPI 83m with hx of bph admitted with sbo and found to have pancreatic cancer went to OR last night for sbo. feeling better today. Full ROS was performed and negative except as documented above Objective Physical Examination General Exam: Positive: Alert, Cooperative, No Acute Distress Eye Exam: Positive: PERRLA, Conjunctiva & lids normal, EOMI ENT Exam: Positive: Atraumatic, Mucous membr. moist/pink, Pharynx Normal Neck Exam: Positive: Supple; Negative: JVD, thyromegaly Chest Exam: Positive: Clear to auscultation, Normal air movement Heart Exam: Positive: Rate Normal, Regular Rhythm, Normal S1, Normal S2; Negative: Murmurs, Rubs Abdomen Exam: Positive: Normal bowel sounds, Soft; Negative: Tenderness, Hepatospenomegaly Extremity Exam: Positive: Normal pulses; Negative: Clubbing, Cyanosis, Edema Skin Exam: Positive: Nl turgor and temperature; Negative: Rash, Breakdown Neuro Exam: Positive: Normal Gait, Normal Speech, Cranial Nerves 3-12 NL, Reflexes 2+ Psych Exam: Positive: Mental status NL, Mood NL, Oriented x 3 Assessment /Plan Assessment 83m p/w high grade sbo and newly diagnosed metastatic pancreatic cancer Pancreatic cancer mets to mesentery oncology consulting prognosis poor SBO had surgery last night post op care per surgeon adv diet and remove ng when having bms Plan/VTE VTE Prophylaxis Ordered?: Yes (lovenox) VS, I&O, 24H, Fishbone Vital Signs/I&O Vital Signs Date Time Temp Pulse Resp B/P (MAP) Pulse Ox O2 Delivery O2 Flow Rate FiO2 03/14/19 15:44 18 03/14/19 09:20 2.0 03/14/19 01:00 98.0 70 123/63 (83) 94 I&O- Last 24 Hours up to 6 AM 03/14/19 06:00 Intake Total 1100 ml Output Total 1495 ml Balance -395 ml Laboratory Data 24H LABS Laboratory Tests 2 03/14/19 06:09: Immature Granulocyte % (Auto) 1.2, White Blood Count 15.3H, Red Blood Count 3.50L, Hemoglobin 11.0L, Hematocrit 33.4L, Mean Corpuscular Volume 95.4, Mean Corpuscular Hemoglobin 31.4, Mean Corpuscular Hemoglobin Concent 32.9, Red Cell Distribution Width 13.0, Platelet Count 245, Neutrophils (%) (Auto) 87.8H, Lymphocytes (%) (Auto) 7.3L, Monocytes (%) (Auto) 3.4, Eosinophils (%) (Auto) 0.1, Basophils (%) (Auto) 0.2, Neutrophils # (Auto) 13.4H, Lymphocytes # (Auto) 1.1L, Monocytes # (Auto) 0.5, Eosinophils # (Auto) 0.0, Basophils # (Auto) 0.0, Nucleated Red Blood Cells % (auto) 0.0, Anion Gap 6L, Glomerular Filtration Rate > 60.0, Blood Urea Nitrogen 14, Creatinine 1.02, Sodium Level 138, Potassium Level 3.7, Chloride Level 98, Carbon Dioxide Level 34H, Calcium Level 7.7L, Magnesium Level 2.5H CBC/BMP Laboratory Tests 03/14/19 06:09 Red Blood Count 3.50 L, Mean Corpuscular Volume 95.4, Mean Corpuscular Hemoglobin 31.4, Mean Corpuscular Hemoglobin Concent 32.9, Red Cell Distribution Width 13.0, Neutrophils (%) (Auto) 87.8 H, Lymphocytes (%) (Auto) 7.3 L, Monocytes (%) (Auto) 3.4, Eosinophils (%) (Auto) 0.1, Basophils (%) (Auto) 0.2, Neutrophils # (Auto) 13.4 H, Lymphocytes # (Auto) 1.1 L, Monocytes # (Auto) 0.5, Eosinophils # (Auto) 0.0, Basophils # (Auto) 0.0, Calcium Level 7.7 L WILMER MARTINEZ MD Mar 14, 2019 18:14
[2019-03-14] MEDS: FINASTERIDE 5 MG TAB PO SCH (21:33)
[2019-03-15] MEDS: D5W/0.45% SODIUM CHLORIDE 1,000 ML IV SCH ×2 (01:53→15:43)
[2019-03-15] MEDS: KETOROLAC 30 MG/ML VIAL (J1885) IV PRN ×2 (03:04→09:44)
[2019-03-15] MEDS: PIPERACILLIN/TAZOBACTAM SOD 3.375 GM in D5W MINI-BAG PLUS 50 ML IV SCH ×4 (03:04→21:19)
[2019-03-15] MEDS: SLF 3 ML SYR IV SCH ×3 (05:47→22:00)
[2019-03-15 06:10] VITALS: BP 130/64
[2019-03-15 06:18] LABS: BASO # 0.1 10^3/uL (0.0-0.2); BASO % 0.4 % (0.0-1.0); EOS # 0.2 10^3/uL (0.0-0.50); EOS % 1.2 % (0.0-3.0); HEMATOCRIT 32.5 % (42.0-52.0); HEMOGLOBIN 10.7 g/dl (13.5-17.5); LYMPH # 1.6 10^3/uL (1.5-4.5); LYMPH % 12.6 % (24.0-44.0); MEAN CORPUSCULAR HEMOGLOBIN 32.3 pg (27.0-33.0); MEAN CORPUSCULAR HGB CONC 32.9 g/dl (32.0-36.5); MEAN CORPUSCULAR VOLUME 98.2 fl (80.0-96.0); NEUTROPHILS # 9.7 10^3/uL (1.8-7.7); NEUTROPHILS % 76.2 % (36.0-66.0); PLATELET COUNT, AUTOMATED 223 10^3/uL (150-450); RED BLOOD COUNT 3.31 10^6/uL (4.30-6.10); WHITE BLOOD COUNT 12.7 10^3/uL (4.0-10.0)
[2019-03-15] MEDS: NORCO, ANEXSIA 5/325MG TABLET (HYDROcodone/ACETAMINOPHEN) PO PRN ×2 (06:30→21:19)
[2019-03-15 06:39] LABS: BLOOD UREA NITROGEN 16 MG/DL (7-18); CALCIUM LEVEL 7.7 MG/DL (8.8-10.2); CARBON DIOXIDE LEVEL 37 MEQ/L (21-32); CHLORIDE LEVEL 97 MEQ/L (98-107); CREATININE FOR GFR 0.91 MG/DL (0.70-1.30); GLOMERULAR FILTRATION RATE > 60.0 (>35); GLUCOSE, FASTING 122 MG/DL (70-100); MAGNESIUM LEVEL 2.5 MG/DL (1.8-2.4); POTASSIUM SERUM 3.1 MEQ/L (3.5-5.1); SODIUM LEVEL 138 MEQ/L (136-145)
[2019-03-15] MEDS: KCL 10MEQ/100ML SWI (KRUN) 10 MEQ in APPROPRIATE DILUENT 1 EA IV SCH ×3 (09:00→09:44)
[2019-03-15] MEDS: POTASSIUM CHLORIDE 10 MEQ SR TABLET PO SCH ×3 (09:00→21:20)
[2019-03-15] MEDS: SENOKOT S TAB PO SCH ×2 (09:03→21:19)
--- NOTE | 2019-03-15 12:23 | REP ---
Clinical: Follow up small bowel obstruction. Technique: Two supine views of the abdomen and pelvis. Findings: Nasogastric tube identified below left hemidiaphragm. Evidence of prior cholecystectomy. Midline surgical skin ed consistent with recent laparoscopy for small bowel obstruction. The bowel gas pattern is nonspecific. Skeletal structures stable. Impression: Nonspecific bowel gas pattern. Electronically Signed by Derek Austin MD 03/15/2019 12:15 P
--- NOTE | 2019-03-15 13:04 | IPN ---
DATE: 03/15/2019 HISTORY: The patient is now postop day #2 from laparotomy and small bowel resection for relief of a small bowel obstruction secondary to metastatic pancreatic cancer. The patient has been allowed to take clear liquids, though he has an nasogastric (NG) tube still in place to low intermittent suction. It seems that most if not all of the fluid he is taking and is coming back out through the NG tube at this point. He does report having had flatus several times but no bowel movement as of yet. Vital signs: Show that he has been afebrile for the past 24 hours. His pulse is in the 70s, and his blood pressure is good. Room air oxygen saturations are in the low 90s. Intake and output shows yesterday that there is 1980 recorded in and 1700 recorded out. He has been producing adequate urine output. PHYSICAL EXAMINATION: Shows a pleasant, older gentleman lying quietly in bed. He appears comfortable. The nasogastric tube is draining some mostly watery fluid with a few bits of darker material. He is alert and oriented. Heart exam shows a regular rhythm and the lungs show distant breath sounds. The abdomen is mildly full but he has bowel sounds present. His incisions are dressed. Calves are nontender to palpation. Laboratory studies show white count of 13 with a hemoglobin of 11, hematocrit of 32, and a platelet count of 223,000. Differential count shows 76% neutrophils, 13% lymphocytes, and 8% monocytes. Chemistry profile shows a potassium of 3.1, CO2 of 37, BUN 16, creatinine 0.9, and a glucose of 122. IMPRESSION: The patient is stable, now 2 days postop from small bowel resection for relief of a small bowel obstruction. He is certainly at risk for re-obstruction given his known extensive metastases. He has had some flatus but has had no bowel function yet and he still is putting out most of the ingested fluids through his NG tube. PLAN: The patient will be allowed to continue his clear liquids and the NG tube will be continued as well. His current medications will be continued. He is receiving potassium supplementation both orally and intravenously (IV). I will obtain a KUB to assess his bowel gas pattern to see if there is evidence for resolution of his bowel obstruction.
[2019-03-15 14:00] VITALS: BP 133/68
--- NOTE | 2019-03-15 17:52 | IPNPDOC ---
Subjective Date Seen The patient was seen on 03/15/19. Subjective Chief Complaint/HPI 83m with hx of bph admitted with sbo and found to have pancreatic cancer pt sore, tolerating clear liquids, having flatus but no bms kub without evidence of obstruction Full ROS was performed and negative except as documented above Objective Physical Examination General Exam: Positive: Alert, Cooperative, No Acute Distress Eye Exam: Positive: PERRLA, Conjunctiva & lids normal, EOMI ENT Exam: Positive: Atraumatic, Mucous membr. moist/pink, Pharynx Normal Neck Exam: Positive: Supple; Negative: JVD, thyromegaly Chest Exam: Positive: Clear to auscultation, Normal air movement Heart Exam: Positive: Rate Normal, Regular Rhythm, Normal S1, Normal S2; Negative: Murmurs, Rubs Abdomen Exam: Positive: Normal bowel sounds, Soft; Negative: Tenderness, Hepatospenomegaly Extremity Exam: Positive: Normal pulses; Negative: Clubbing, Cyanosis, Edema Skin Exam: Positive: Nl turgor and temperature; Negative: Rash, Breakdown Neuro Exam: Positive: Normal Gait, Normal Speech, Cranial Nerves 3-12 NL, Reflexes 2+ Psych Exam: Positive: Mental status NL, Mood NL, Oriented x 3 Assessment /Plan Assessment 83m p/w high grade sbo and newly diagnosed metastatic pancreatic cancer Pancreatic cancer mets to mesentery oncology consulting prognosis poor SBO pod2 post op care per surgeon adv diet and remove ng when having bms Plan/VTE VTE Prophylaxis Ordered?: Yes (lovenox) VS, I&O, 24H, Fishbone Vital Signs/I&O Vital Signs Date Time Temp Pulse Resp B/P (MAP) Pulse Ox O2 Delivery O2 Flow Rate FiO2 03/15/19 14:00 98.0 70 18 133/68 (89) 95 03/15/19 09:40 2.0 I&O- Last 24 Hours up to 6 AM 03/15/19 06:00 Intake Total 1980 ml Output Total 2675 ml Balance -695 ml Laboratory Data 24H LABS Laboratory Tests 2 03/15/19 05:53: Immature Granulocyte % (Auto) 1.6, White Blood Count 12.7H, Red Blood Count 3.31L, Hemoglobin 10.7L, Hematocrit 32.5L, Mean Corpuscular Volume 98.2H, Mean Corpuscular Hemoglobin 32.3, Mean Corpuscular Hemoglobin Concent 32.9, Red Cell Distribution Width 12.9, Platelet Count 223, Neutrophils (%) (Auto) 76.2H, Lymphocytes (%) (Auto) 12.6L, Monocytes (%) (Auto) 8.0H, Eosinophils (%) (Auto) 1.2, Basophils (%) (Auto) 0.4, Neutrophils # (Auto) 9.7H, Lymphocytes # (Auto) 1.6, Monocytes # (Auto) 1.0H, Eosinophils # (Auto) 0.2, Basophils # (Auto) 0.1, Nucleated Red Blood Cells % (auto) 0.0, Anion Gap 4L, Glomerular Filtration Rate > 60.0, Blood Urea Nitrogen 16, Creatinine 0.91, Sodium Level 138, Potassium Le akos[place] 3.1L, Chloride Level 97L, Carbon Dioxide Level 37H, Calcium Level 7.7L, Magnesium Level 2.5H CBC/BMP Laboratory Tests 03/15/19 05:53 Red Blood Count 3.31 L, Mean Corpuscular Volume 98.2 H, Mean Corpuscular Hemoglobin 32.3, Mean Corpuscular Hemoglobin Concent 32.9, Red Cell Distribution Width 12.9, Neutrophils (%) (Auto) 76.2 H, Lymphocytes (%) (Auto) 12.6 L, Monocytes (%) (Auto) 8.0 H, Eosinophils (%) (Auto) 1.2, Basophils (%) (Auto) 0.4, Neutrophils # (Auto) 9.7 H, Lymphocytes # (Auto) 1.6, Monocytes # (Auto) 1.0 H, Eosinophils # (Auto) 0.2, Basophils # (Auto) 0.1, Calcium Level 7.7 L WILMER MARTINEZ MD Mar 15, 2019 17:51
[2019-03-15 21:05] VITALS: BP 173/85
[2019-03-15] MEDS: FINASTERIDE 5 MG TAB PO SCH (21:19)
[2019-03-16] MEDS: D5W/0.45% SODIUM CHLORIDE 1,000 ML IV SCH (00:09)
[2019-03-16] MEDS: PIPERACILLIN/TAZOBACTAM SOD 3.375 GM in D5W MINI-BAG PLUS 50 ML IV SCH ×2 (03:17→08:50)
[2019-03-16 05:54] VITALS: BP 134/69
[2019-03-16] MEDS: SLF 3 ML SYR IV SCH ×3 (06:00→22:00)
[2019-03-16 08:43] LABS: BLOOD UREA NITROGEN 12 MG/DL (7-18); CALCIUM LEVEL 8.2 MG/DL (8.8-10.2); CARBON DIOXIDE LEVEL 34 MEQ/L (21-32); CHLORIDE LEVEL 100 MEQ/L (98-107); CREATININE FOR GFR 0.83 MG/DL (0.70-1.30); GLOMERULAR FILTRATION RATE > 60.0 (>35); GLUCOSE, FASTING 126 MG/DL (70-100); POTASSIUM SERUM 3.5 MEQ/L (3.5-5.1); SODIUM LEVEL 137 MEQ/L (136-145)
[2019-03-16] MEDS: NORCO, ANEXSIA 5/325MG TABLET (HYDROcodone/ACETAMINOPHEN) PO PRN (08:51)
[2019-03-16] MEDS: KETOROLAC 30 MG/ML VIAL (J1885) IV PRN (08:51)
[2019-03-16] MEDS: POTASSIUM CHLORIDE 10 MEQ SR TABLET PO SCH ×3 (08:51→20:51)
[2019-03-16] MEDS: SENOKOT S TAB PO SCH ×3 (08:51→20:52)
--- NOTE | 2019-03-16 13:43 | IPN ---
DATE: 03/16/2019 TIME: 12:15 p.m. HISTORY: The patient is now postop day 3 from laparotomy and small bowel resection for obstruction by metastatic pancreatic cancer. The nurse reported that his NG tube came out early this morning, probably around 9 o'clock. He denies any nausea or vomiting. He has been passing some flatus, but has not had a bowel movement. He had a KUB yesterday that showed that his oral contrast that had been scattered in the small bowel loops is now all in his colon and the small bowel dilation seems almost completely to have resolved. Vital signs show that he has been afebrile over the past 24 hours. His pulse is in the 70s. His blood pressure is good. Intake and output show that yesterday he had 1620 in with 1775 out. PHYSICAL EXAMINATION: The patient is sitting up in a chair at bedside and looks quite comfortable. He is alert and oriented. Skin is warm and dry. Heart exam shows a regular rate and rhythm. The lungs are clear. The abdomen is mildly full but he has some bowel sounds present, though they are not active. He does not have any significant abdominal tenderness. LABORATORY STUDIES: The patient had a BMP this morning that showed a sodium of 137, potassium 3.5, chloride 100, CO2 of 34, BUN of 12, creatinine 0.8 and glucose of 126. His KUB from yesterday is as noted in the history today. IMPRESSION: The patient appears to be doing quite well overall. He has been taking clear liquids but we been sucking that all out through his NG tube. The NG tube has now been dislodged and I will leave that out for now and see how he does with a trial of clear liquids. PLAN: I advised the patient to go slowly with the clear liquids for a while until it is clear if he is or is not going to tolerate these. If he tolerates the clear liquids during the course of the day then I will saline lock his IV and consider advancing his diet. I think that based on his KUB and his history so far that his bowel obstruction has been resolved and that he will have no problem.
[2019-03-16 14:00] VITALS: BP 135/71
[2019-03-16] MEDS ORDERED: ONDANSETRON 4 MG TAB (S0181) PO PRN (15:30)
--- NOTE | 2019-03-16 18:55 | IPNPDOC ---
Subjective Date Seen The patient was seen on 03/16/19. Subjective Chief Complaint/HPI 83m with hx of bph admitted with sbo and found to have pancreatic cancer feeling well today, ng tube is out, tolerating clears, no bms Full ROS was performed and negative except as documented above Objective Physical Examination General Exam: Positive: Alert, Cooperative, No Acute Distress Eye Exam: Positive: PERRLA, Conjunctiva & lids normal, EOMI ENT Exam: Positive: Atraumatic, Mucous membr. moist/pink, Pharynx Normal Neck Exam: Positive: Supple; Negative: JVD, thyromegaly Chest Exam: Positive: Clear to auscultation, Normal air movement Heart Exam: Positive: Rate Normal, Regular Rhythm, Normal S1, Normal S2; Negative: Murmurs, Rubs Abdomen Exam: Positive: Normal bowel sounds, Soft; Negative: Tenderness, Hepatospenomegaly Extremity Exam: Positive: Normal pulses; Negative: Clubbing, Cyanosis, Edema Skin Exam: Positive: Nl turgor and temperature; Negative: Rash, Breakdown Neuro Exam: Positive: Normal Gait, Normal Speech, Cranial Nerves 3-12 NL, Reflexes 2+ Psych Exam: Positive: Mental status NL, Mood NL, Oriented x 3 Assessment /Plan Assessment 83m p/w high grade sbo and newly diagnosed metastatic pancreatic cancer Pancreatic cancer mets to mesentery oncology consulting prognosis poor SBO s/p surgical resection post op care per surgeon adv diet when having bms Plan/VTE VTE Prophylaxis Ordered?: Yes (lovenox) VS, I&O, 24H, Fishbone Vital Signs/I&O Vital Signs Date Time Temp Pulse Resp B/P (MAP) Pulse Ox O2 Delivery O2 Flow Rate FiO2 03/16/19 14:00 98.6 80 18 135/71 (92) 94 03/15/19 09:40 2.0 I&O- Last 24 Hours up to 6 AM 03/16/19 05:59 Intake Total 1980 ml Output Total 1200 ml Balance 780 ml Laboratory Data 24H LABS Laboratory Tests 2 03/16/19 08:09: Anion Gap 3L, Glomerular Filtration Rate > 60.0, Blood Urea Nitrogen 12, Creatinine 0.83, Sodium Level 137, Potassium Level 3.5, Chloride Level 100, Car bon Dioxide Level 34H, Calcium Level 8.2L CBC/BMP Laboratory Tests 03/16/19 08:09 Calcium Level 8.2 L WILMER MARTINEZ MD Mar 16, 2019 18:55
[2019-03-16] MEDS: FINASTERIDE 5 MG TAB PO SCH (20:51)
[2019-03-16 21:11] VITALS: BP 143/75
[2019-03-17] MEDS: SLF 3 ML SYR IV SCH ×3 (05:16→21:07)
[2019-03-17 05:33] VITALS: BP 143/74
[2019-03-17 05:41] LABS: BASO # 0.1 10^3/uL (0.0-0.2); BASO % 0.4 % (0.0-1.0); EOS # 0.3 10^3/uL (0.0-0.50); HEMATOCRIT 35.3 % (42.0-52.0); HEMOGLOBIN 11.5 g/dl (13.5-17.5); LYMPH # 1.9 10^3/uL (1.5-4.5); LYMPH % 13.4 % (24.0-44.0); MEAN CORPUSCULAR HEMOGLOBIN 31.3 pg (27.0-33.0); MEAN CORPUSCULAR HGB CONC 32.6 g/dl (32.0-36.5); MEAN CORPUSCULAR VOLUME 95.9 fl (80.0-96.0); MONO # 1.1 10^3/uL (0.0-0.8); MONO % 7.8 % (0.0-5.0); NEUTROPHILS # 10.2 10^3/uL (1.8-7.7); NEUTROPHILS % 73.8 % (36.0-66.0); PLATELET COUNT, AUTOMATED 285 10^3/uL (150-450); RED BLOOD COUNT 3.68 10^6/uL (4.30-6.10); WHITE BLOOD COUNT 13.8 10^3/uL (4.0-10.0)
[2019-03-17 06:09] LABS: BLOOD UREA NITROGEN 12 MG/DL (7-18); CALCIUM LEVEL 8.4 MG/DL (8.8-10.2); CARBON DIOXIDE LEVEL 30 MEQ/L (21-32); CHLORIDE LEVEL 106 MEQ/L (98-107); CREATININE FOR GFR 0.78 MG/DL (0.70-1.30); GLOMERULAR FILTRATION RATE > 60.0 (>35); GLUCOSE, FASTING 114 MG/DL (70-100); SODIUM LEVEL 140 MEQ/L (136-145)
[2019-03-17] MEDS: POTASSIUM CHLORIDE 10 MEQ SR TABLET PO SCH ×3 (08:34→21:07)
[2019-03-17] MEDS: SENOKOT S TAB PO SCH ×3 (08:35→21:07)
--- NOTE | 2019-03-17 12:05 | IPNPDOC ---
Text Note Date of Service The patient was seen on 03/17/19. NOTE No acute events over the weekend. Denies nausea, emesis, or fevers. He is tole rating clq diet with the NGT out and has flatus and BMs. VSSAF NAD abd - soft, non distended, TTP appropriate, dressing c/d/i labs - see below A) 83y/o male with partial SBO secondary to metastatic pancreatic CA POD#4 s/p sbr with primary anastamosis P) ambulate reg diet PT eval d/c home today or tomorrow after he discussed plan with oncology. Lowell Crum DO VS,Fishbone, I+O VS, Fishbone, I+O Laboratory Tests 03/17/19 05:18 Red Blood Count 3.68 L, Mean Corpuscular Volume 95.9, Mean Corpuscular Hemoglobin 31.3, Mean Corpuscular Hemoglobin Concent 32.6, Red Cell Distribution Width 12.8, Neutrophils (%) (Auto) 73.8 H, Lymphocytes (%) (Auto) 13.4 L, Monocytes (%) (Auto) 7.8 H, Eosinophils (%) (Auto) 2.0, Basophils (%) (Auto) 0.4, Neutrophils # (Auto) 10.2 H, Lymphocytes # (Auto) 1.9, Monocytes # (Auto) 1.1 H, Eosinophils # (Auto) 0.3, Basophils # (Auto) 0.1, Calcium Level 8.4 L Vital Signs Date Time Temp Pulse Resp B/P (MAP) Pulse Ox O2 Delivery O2 Flow Rate FiO2 03/17/19 05:33 97.3 72 20 143/74 (97) 95 03/15/19 09:40 2.0 I&O- Last 24 Hours up to 6 AM 03/17/19 05:59 Intake Total 1100 ml Output Total 2300 ml Balance -1200 ml ART CRUM DO Mar 17, 2019 12:05
[2019-03-17 14:00] VITALS: BP 136/65
--- NOTE | 2019-03-17 17:24 | IPNPDOC ---
Subjective Date Seen The patient was seen on 03/17/19. Subjective Chief Complaint/HPI 83m with hx of bph admitted with sbo and found to have pancreatic cancer moved bowels last night, tolerating solid diet now Full ROS was performed and negative except as documented above Objective Physical Examination General Exam: Positive: Alert, Cooperative, No Acute Distress Eye Exam: Positive: PERRLA, Conjunctiva & lids normal, EOMI ENT Exam: Positive: Atraumatic, Mucous membr. moist/pink, Pharynx Normal Neck Exam: Positive: Supple; Negative: JVD, thyromegaly Chest Exam: Positive: Clear to auscultation, Normal air movement Heart Exam: Positive: Rate Normal, Regular Rhythm, Normal S1, Normal S2; Negative: Murmurs, Rubs Abdomen Exam: Positive: Normal bowel sounds, Soft; Negative: Tenderness, Hepatospenomegaly Extremity Exam: Positive: Normal pulses; Negative: Clubbing, Cyanosis, Edema Skin Exam: Positive: Nl turgor and temperature; Negative: Rash, Breakdown Neuro Exam: Positive: Normal Gait, Normal Speech, Cranial Nerves 3-12 NL, Reflexes 2+ Psych Exam: Positive: Mental status NL, Mood NL, Oriented x 3 Assessment /Plan Assessment 83m p/w high grade sbo and newly diagnosed metastatic pancreatic cancer Pancreatic cancer mets to mesentery oncology consulting prognosis poor plan is for oncology follow up today then if pt opts for hospice likely dc tomorrow SBO s/p surgical resection post op care per surgeon tolerating solid diet moving bowels Plan/VTE VTE Prophylaxis Ordered?: Yes (lovenox) VS, I&O, 24H, Fishbone Vital Signs/I&O Vital Signs Date Time Temp Pulse Resp B/P (MAP) Pulse Ox O2 Delivery O2 Flow Rate FiO2 03/17/19 14:00 97.7 70 18 136/65 (88) 92 03/15/19 09:40 2.0 I&O- Last 24 Hours up to 6 AM 03/17/19 06:00 Intake Total 1100 ml Output Total 2300 ml Balance -1200 ml Laboratory Data 24H LABS Laboratory Tests 2 03/17/19 05:18: Immature Granulocyte % (Auto) 2.6, White Blood Count 13.8H, Red Blood Count 3.68L, Hemoglobin 11.5L, Hematocrit 35.3L, Mean Corpuscular Volume 95.9, Mean Corpuscular Hemoglobin 31.3, Mean Corpuscular Hemoglobin Concent 32.6, Red Cell Distribution Width 12.8, Platelet Count 285, Neutrophils (%) (Auto) 73.8H, Lymphocytes (%) (Auto) 13.4L, Monocytes (%) (Auto) 7.8H, Eosinophils (%) (Auto) 2.0, Basophils (%) (Auto) 0.4, Neutrophils # (Auto) 10.2H, Lymphocytes # (Auto) 1.9, Monocytes # (Auto) 1.1H, Eosinophils # (Auto) 0.3, Basophils # (Auto) 0.1, Nucleated Red Blood Cells % (auto) 0.0, Anion Gap 4L, Glomerular Filtration Rate > 60.0, Blood Urea Nitrogen 12, Creatinine 0.78, Sodium Level 140, Potassium Level 4.0, Chloride Level 106, Carbon Dioxide Level 30, Calcium Level 8.4L CBC/BMP Laboratory Tests 03/17/19 05:18 Red Blood Count 3.68 L, Mean Corpuscular Volume 95.9, Mean Corpuscular Hemoglobin 31.3, Mean Corpuscular Hemoglobin Concent 32.6, Red Cell Distribution Width 12.8, Neutrophils (%) (Auto) 73.8 H, Lymphocytes (%) (Auto) 13.4 L, Monocytes (%) (Auto) 7.8 H, Eosinophils (%) (Auto) 2.0, Basophils (%) (Auto) 0.4, Neutrophils # (Auto) 10.2 H, Lymphocytes # (Auto) 1.9, Monocytes # (Auto) 1.1 H, Eosinophils # (Auto) 0.3, Basophils # (Auto) 0.1, Calcium Level 8.4 L WILMER MARTINEZ MD Mar 17, 2019 17:23
--- NOTE | 2019-03-17 18:13 | IPNPDOC ---
Date Seen The patient was seen on 03/17/19. Progress Note I met with the family this afternoon and we discussed his recent surgery and present condition THey have agreed to HOSPICE for the patient . He lives in [facility] Will put in an official consult to hospice The possibility of a recurrent SBO was discussed with them as well . The pateint is eating with no issues of nausea or vomiting and is holding down hi s food Thank you [facility] VS, I&O, 24H, Zachary Vital Signs/I&O Vital Signs Date Time Temp Pulse Resp B/P (MAP) Pulse Ox O2 Delivery O2 Flow Rate FiO2 03/17/19 14:00 97.7 70 18 136/65 (88) 92 03/15/19 09:40 2.0 I&O- Last 24 Hours up to 6 AM 03/17/19 05:59 Intake Total 1100 ml Output Total 2300 ml Balance -1200 ml Laboratory Data 24H LABS Laboratory Tests 2 03/17/19 05:18: Immature Granulocyte % (Auto) 2.6, White Blood Count 13.8H, Red Blood Count 3.68L, Hemoglobin 11.5L, Hematocrit 35.3L, Mean Corpuscular Volume 95.9, Mean Corpuscular Hemoglobin 31.3, Mean Corpuscular Hemoglobin Concent 32.6, Red Cell Distribution Width 12.8, Platelet Count 285, Neutrophils (%) (Auto) 73.8H, Lymphocytes (%) (Auto) 13.4L, Monocytes (%) (Auto) 7.8H, Eosinophils (%) (Auto) 2.0, Basophils (%) (Auto) 0.4, Neutrophils # (Auto) 10.2H, Lymphocytes # (Auto) 1.9, Monocytes # (Auto) 1.1H, Eosinophils # (Auto) 0.3, Basophils # (Auto) 0.1, Nucleated Red Blood Cells % (auto) 0.0, Anion Gap 4L, Glomerular Filtration Rate > 60.0, Blood Urea Nitrogen 12, Creatinine 0.78, Sodium Level 140, Potassium Level 4.0, Chloride Level 106, Carbon Dioxide Level 30, Calcium Level 8.4L CBC/BMP Laboratory Tests 03/17/19 05:18 Red Blood Count 3.68 L, Mean Corpuscular Volume 95.9, Mean Corpuscular Hemoglobin 31.3, Mean Corpuscular Hemoglobin Concent 32.6, Red Cell Distribution Width 12.8, Neutrophils (%) (Auto) 73.8 H, Lymphocytes (%) (Auto) 13.4 L, Monocytes (%) (Auto) 7.8 H, Eosinophils (%) (Auto) 2.0, Basophils (%) (Auto) 0.4, Neutrophils # (Auto) 10.2 H, Lymphocytes # (Auto) 1.9, Monocytes # (Auto) 1.1 H, Eosinophils # (Auto) 0.3, Basophils # (Auto) 0.1, Calcium Level 8.4 L Essence Loredo MD Mar 17, 2019 18:13
[2019-03-17] MEDS: FINASTERIDE 5 MG TAB PO SCH (21:07)
[2019-03-17 22:00] VITALS: BP 148/68
[2019-03-18] MEDS: SLF 3 ML SYR IV SCH (05:07)
[2019-03-18 06:03] VITALS: BP 150/72
[2019-03-18] MEDS: POTASSIUM CHLORIDE 10 MEQ SR TABLET PO SCH (08:01)
[2019-03-18] MEDS: SENOKOT S TAB PO SCH (08:02)
--- NOTE | 2019-03-18 09:00 | IPNPDOC ---
Text Note Date of Service The patient was seen on 03/18/19. NOTE No acute events overnight . Denies nausea, emesis, or fevers. He is tolerating reg diet and has flatus and BMs. VSSAF NAD abd - soft, non distended, TTP appropriate, dressing c/d/i labs - see below A) 83y/o male with partial SBO secondary to metastatic pancreatic CA POD#5 s/p sbr with primary anastamosis P) ambulate reg diet d/c home today with home hospice consult f/u with me 03/27 in the office for staple removal. Lowell Crum DO VS,Fishbone, I+O VS, Fishbone, I+O Vital Signs Date Time Temp Pulse Resp B/P (MAP) Pulse Ox O2 Delivery O2 Flow Rate FiO2 03/18/19 06:03 98.3 73 14 150/72 (98) 94 03/15/19 09:40 2.0 I&O- Last 24 Hours up to 6 AM 03/18/19 06:00 Intake Total 1410 ml Output Total 0 ml Balance 1410 ml ART CRUM DO Mar 18, 2019 09:00
[2019-03-18] MEDS ORDERED: HYOS125TA PO ×2 (11:54→12:28)
[2019-03-18] MEDS ORDERED: MORP20SO3 PO ×2 (11:54→12:28)
[2019-03-18] MEDS ORDERED: LORA0.5T11 PO ×2 (11:54→12:28)
--- NOTE | 2019-03-18 15:14 | DS.PDOC ---
Discharge Summary General Date of Admission Mar 10, 2019 at 09:31 Date of Discharge 03/18/19 Specialist/Consultants Involve: Essence Loredo MD Specialist/Consultants Involve Dr. Crum Discharge Summary PROCEDURES PERFORMED DURING STAY: Ex-lap with laparotomy and small bowel resection, primary anastomosis ADMITTING DIAGNOSES: 1. abdominal pain DISCHARGE DIAGNOSES: 1. small bowel obstruction 2. pancreatic cancer 3. hypertension 4. dyslipidemia COMPLICATIONS/CHIEF COMPLAINT: Bowel Obstruction, Pancreatic Mass. HISTORY OF PRESENT ILLNESS: Mr. Selby is an 83 year old male resented with complaints of diffuse, nonradiating, eating, 9 out of 10 in severity, abdominal pain. Associated symptoms included constipation nausea, vomiting and abdominal distention. He denied obstipation. He has lost weight but denies fevers and chills. HOSPITAL COURSE: Patient was admitted for further evaluation and treatment, found to have a small bowel obstruction and pancreatic mass. He was seen and evaluated by general surgery and oncology. He underwent surgical intervention including small bowel resection, with biopsy and fine needle aspiration of his pancreatic mass, which revealed metastatic adenocarcinoma. The patient and family elected to proceed with comfort measures only, and the patient was discharged home with hospice care. DISCHARGE MEDICATIONS: Please see below. ALLERGIES: Please see below. PHYSICAL EXAMINATION ON DISCHARGE: VITAL SIGNS: Please see below. GENERAL: NAD, lying comfortably in bed, elderly HEENT: NC/AT CARDIOVASCULAR EXAMINATION: +S1S2, RRR RESPIRATORY EXAMINATION: CTA B/L ABDOMINAL EXAMINATION: soft LABORATORY DATA: Please see below. PROGNOSIS: poor prognosis, home hospice ACTIVITY: [As tolerated]. DIET: as tolerated DISPOSITION: 50 Hospice Home. DISCHARGE INSTRUCTIONS: 1. further direction as per hospice and PCP. TIME SPENT ON DISCHARGE: Greater than 35 minutes. Vital Signs/I&Os Vital Signs Date Time Temp Pulse Resp B/P (MAP) Pulse Ox O2 Delivery O2 Flow Rate FiO2 03/18/19 06:03 98.3 73 14 150/72 (98) 94 03/15/19 09:40 2.0 I&O- Last 24 Hours up to 6 AM 03/18/19 06:00 Intake Total 1410 ml Output Total 0 ml Balance 1410 ml Discharge Medications Scheduled Allopurinol (Zyloprim) 300 Mg Tablet, 300 MG PO DAILY, (Reported) Finasteride (Finasteride) 5 Mg Tablet, 5 MG PO QPM, (Reported) Omeprazole Magnesium (Prilosec Otc) 20 Mg Tablet.dr, 20 MG PO DAILY, (Reported) Silodosin (Silodosin) 8 Mg Capsule, 8 MG PO QPM, (Reported) Scheduled PRN Hyoscyamine Sulfate (Hyoscyamine Sulfate) 0.125 Mg Tab.subl, 0.125 MG PO Q4HP PRN for TERMINAL SECRETIONS Use sublingually if unable to swallow Lorazepam (Lorazepam) 0.5 Mg Tablet, 0.5 MG PO Q4HP PRN for ANXIETY/AGITATION Use sublingually if unable to swallow Morphine Sulfate (Morphine Sulfate) 100 Mg/5 Ml Solution, 0.25-1 ML PO Q2H PRN for PAIN OR DYSPNEA Use sublingually if unable to swallow Allergies Coded Allergies: No Known Allergies (Verified , 02/16/03) JAVIER GLOVER MD Mar 18, 2019 15:14
== END 2019-03-18 12:55 | disposition hospice, home (50) | DRG 330 ==
LOC: M ED 09:01 → M ED INP 15:04 → M PCU 17:11 → EEVIPCON 03-10 09:31 → OBSVTOIN 03-10 09:31 → M MS4PR 03-11 13:11 → M MS5PR 03-13 16:40
PROVIDERS: ADMIT Internal Medicine; ATTEND Hospitalist
PROC: 0DBV3ZX Excision of Mesentery, Percutaneous Approach, Diagnostic (ICD-10-PCS; 2019-03-11)
PROC: 0DB80ZZ Excision of Small Intestine, Open Approach (ICD-10-PCS; principal; 2019-03-13 18:00)
DX: C78.6 Secondary malignant neoplasm of retroperitoneum and peritoneum (principal); C25.2 Malignant neoplasm of tail of pancreas; I10 Essential (primary) hypertension; N40.0 Benign prostatic hyperplasia without lower urinary tract symptoms; E78.5 Hyperlipidemia, unspecified; D50.9 Iron deficiency anemia, unspecified; K59.00 Constipation, unspecified; Z79.82 Long term (current) use of aspirin; Z79.899 Other long term (current) drug therapy; Z86.010 Personal history of colon polyps; E87.6 Hypokalemia; E66.9 Obesity, unspecified; Z68.30 Body mass index [BMI] 30.0-30.9, adult